=== PATIENT | female | born 1955 | race Caucasian/White ===

== ENCOUNTER 2018-09-19 12:53 | Inpatient (IN) | payer MEDICARE, OTHER ==
[2018-09-19 14:12] VITALS: BMI 19.8
--- NOTE | 2018-09-19 15:12 | HP ---
CIWA Score - Admission Criteria [facility]ASAS Guidelines: Admission for Medically Managed Detox: Requires at least one of the followin. CIWA greater than 12 2. Seizures within the past 24 hours 3. Delirium tremens within the past 24 hours 4. Hallucinations within the past 24 hours 5. Acute intervention needed for co occurring medical disorder 6. Acute intervention needed for co occurring psychiatric disorder 7. Severe withdrawal that cannot be handled at a lower level of care (continued vomiting, continued diarrhea, abnormal vital signs) requiring intravenous medication and/or fluids 8. Admission ROS [facility] - HPI Chief Complaint: i need help to come in for rehab from cocaine,heroin abused,mmtp 30 mgs/day, last medicated today Allergies/Adverse Reactions: Allergies Allergy/AdvReac Type Severity Reaction Status Date / Time No Known Allergies Allergy Verified 09/19/18 13:57 History of Present Illness: this 63 years old female with cocaine dependence,heroin abused,mmtp 30 mgs/day, last medicated today requested rehab history of hypertension heroin abused last rehab 07/21/15 to 07/25/15 nicotine dependence 5 cigarette/day,requested nicotine gum no significant period of sobriety weight loss Exam Limitations: No Limitations - Ebola screening Have you traveled outside of the country in the last 21 days: No Have you had contact with anyone from an Ebola affected area: No Do you have a fever: No - Review of Systems Constitutional: No Symptoms Reported EENT: reports: No Symptoms Reported Respiratory: reports: No Symptoms reported Cardiac: reports: No Symptoms Reported GI: reports: No Symptoms Reported : reports: No Symptoms Reported Musculoskeletal: reports: No Symptoms Reported Integumentary: reports: No Symptoms Reported Neuro: reports: No Symptoms reported Endocrine: reports: No Symptoms Reported Hematology: reports: No Symptoms Reported Psychiatric: reports: No Sypmtoms Reported, Judgement Intact, Mood/Affect Appropiate, Orientated x3, other (insomnia) Patient History - Patient Medical History Hx Anemia: No Hx Asthma: No Hx Chronic Obstructive Pulmonary Disease (COPD): No Hx Cancer: No Hx Cardiac Disorders: No Hx Congestive Heart Failure: No Hx Hypertension: Yes (non compliant) Hx Hypercholesterolemia: No Hx Pacemaker: No HX Cerebrovascular Accident: No Hx Seizures: No Hx Dementia: No Hx Diabetes: No Hx Gastrointestinal Disorders: No Hx Liver Disease: No Hx Genitourinary Disorders: No Hx Sexually Transmitted Disorders: No Hx Renal Disease (ESRD): No Hx Thyroid Disease: No Hx Human Immunodeficiency Virus (HIV): No (negative last 08/29) Hx Hepatitis C: No Hx Depression: Yes Hx Suicide Attempt: No (denies) Hx Bipolar Disorder: No Hx Schizophrenia: No Other Medical History: no suicidal,no homicidal,insomnia - Patient Surgical History Past Surgical History: No Hx Neurologic Surgery: No Hx Cataract Extraction: No Hx Cardiac Surgery: No Hx Lung Surgery: Yes (right upper lobectomy 2011 [facility] ) Hx Breast Surgery: No Hx Breast Biopsy: No Hx Abdominal Surgery: No Hx Appendectomy: No Hx Cholecystectomy: Yes (lap 2004 [facility]) Hx Genitourinary Surgery: No Hx Section: No Hx Orthopedic Surgery: No Anesthesia Reaction: No - PPD History Previous Implant?: Yes Documented Results: Negative w/o proof Implanted On Prior [facility] Admission?: Yes Date: 07/23/15 Results: 0 mm PPD to be Administered?: No - Reproductive History Patient : No - Smoking Cessation Smoking history: Current every day smoker Have you smoked in the past 12 months: Yes Aproximately how many cigarettes per day: 7 Hx Chewing Tobacco Use: No Initiated information on smoking cessation: Yes 'Breaking Loose' booklet given: 09/19/18 - Substance & Tx. History Hx Alcohol Use: No Hx Substance Use: Yes Substance Use Type: Cocaine, Heroin Hx Substance Use Treatment: Yes (rehab [facility] 07/21/15 to 07/25/15) - Substances abused Cocaine Substance route: Inhalation Frequency: Daily Amount used: 1 gram Age of first use: 46 Date of last use: 09/18/18 Heroin Substance route: Inhalation Frequency: Daily Amount used: 4 bags Age of first use: 60 Date of last use: 09/18/18 Family Disease History - Family Disease History Family Disease History: Heart Disease: Mother Admission Physical Exam [facility] - Vital Signs Vital Signs: Vital Signs - 24 hr 09/19/18 14:04 Temperature 98.5 F Pulse Rate 76 Respiratory 18 Rate Blood Pressure 113/84 - Physical General Appearance: Yes: Within Normal Limits HEENTM: Yes: Normal ENT Inspection, KANA, Pharynx Normal Respiratory: Yes: Lungs Clear, Normal Breath Sounds, No Respiratory Distress, Surgical Scar (right posterior chest wall) Neck: Yes: Within Normal Limits, Supple, Trachea in good position Breast: Yes: Breast Exam Deferred Cardiology: Yes: Within Normal Limits, Regular Rate, S1, S2, Murmur Abdominal: Yes: Within Normal Limits, Normal Bowel Sounds, Non Tender, Flat, Soft, Surgical Scar Genitourinary: Yes: Within Normal Limits Back: Yes: Within Normal Limits Musculoskeletal: Yes: Within Normal Limits Extremities: Yes: Within Normal Limits 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 NML intact, Alert, Motor Strength 5/5 Integumentary: Yes: Dry Lymphatic: Yes: Within Normal Limits - Diagnostic (1) Cocaine dependence, uncomplicated Current Visit: No Status: Chronic (2) Heroin abuse Current Visit: Yes Status: Acute (3) Methadone maintenance therapy patient Current Visit: Yes Status: Acute (4) Nicotine dependence Current Visit: No Status: Chronic Qualifiers: Nicotine product type: cigarettes Substance use status: uncomplicated Qualified Code(s): F17.210 - Nicotine dependence, cigarettes, uncomplicated (5) Insomnia secondary to depression with anxiety Current Visit: Yes Status: Acute (6) Weight loss Current Visit: Yes Status: Acute (7) Lung cancer Current Visit: Yes Status: Acute (8) History of lung surgery Current Visit: Yes Status: Acute (9) History of laparoscopic cholecystectomy Current Visit: Yes Status: Acute Cleared for Admission [facility] - Detox or Rehab Claeared for Rehab Admission: Yes Inpatient Rehab Admission - Rehab Decision to Admit Inpatient rehab admission?: Yes - Initial Determination Are CD services needed?: Yes Free of communicable disease: Yes Not in need of hospitalization: Yes - Rehab Admission Criteria Previous failed treatment: Yes Poor recovery environment: Yes Comorbidities: Yes Lacks judgement: No Patient is meeting Inpatient Rehab admission criteria:: Yes
[2018-09-19] MEDS ORDERED: LOPERAMIDE HCL 2 MG CAPSULE PO PRN (15:26)
[2018-09-19] MEDS ORDERED: MAG HYDROX/AL HYDROX/SIMETH 30 ML UNIT-DOSE CUP PO PRN (15:26)
[2018-09-19] MEDS ORDERED: P-EPHED 60MG/TRIPROLIDI 2.5MG TABLET PO PRN (15:26)
[2018-09-19] MEDS ORDERED: MAGNESIUM CITRATE 300 ML BOTTLE PO PRN (15:26)
[2018-09-19] MEDS ORDERED: MAGNESIUM HYDROX 2400MG/30ML ORAL SUSPENSION 30 ML CUP PO PRN (15:26)
[2018-09-19] MEDS ORDERED: ACETAMINOPHEN 325 MG TABLET (FP) PO PRN (15:26)
[2018-09-19] MEDS ORDERED: MENTHOL/PHENOL 1 EACH UD MM PRN (15:26)
[2018-09-19] MEDS ORDERED: IBUPROFEN 400 MG TABLET (FP) PO PRN (15:26)
[2018-09-19] MEDS ORDERED: guaiFENesin 200 MG/10 ML 10 ML UNIT-DOSE CUPS PO PRN (15:26)
[2018-09-19] MEDS: THIAMINE HCL 100 MG TABLET (FP) PO SCH (21:56)
[2018-09-19] MEDS: MELATONIN 5 MG TABLETS PO PRN (21:57)
[2018-09-19] MEDS: TRIAMCINOLONE ACET 0.1% CREAM 15 GM TUBE TP SCH (22:09)
[2018-09-20] MEDS: METHADONE HCL 10 MG TABLET PO SCH (07:19)
[2018-09-20] MEDS: hydrOXYzine PAMOATE 25 MG CAPSULE (FP) PO PRN ×3 (07:50→21:16)
[2018-09-20] MEDS: TRIAMCINOLONE ACET 0.1% CREAM 15 GM TUBE TP SCH ×2 (09:15→21:16)
[2018-09-20] MEDS: PRENATAL VITAMINS W/ FOLIC ACID TABLET (FP) PO SCH (09:16)
[2018-09-20] MEDS: LOSARTAN POTASSIUM 50 MG TABLET (FP) PO SCH (09:18)
[2018-09-20 12:54] LABS: HEMOGLOBIN 12.8 GM/dL (10.7-15.3); MCH 30.9 pg (25.7-33.7); MCHC 33.6 g/dl (32.0-36.0); MEAN CELL VOLUME 91.8 fl (80-96); MEAN PLT VOLUME 8.7 fl (7.5-11.1); PLATELET COUNT 242 K/MM3 (134-434); RBC 4.15 M/mm3 (3.60-5.2); RDW 13.6 % (11.6-15.6)
[2018-09-20 12:56] LABS: ALBUMIN 3.3 g/dl (3.4-5.0); BILIRUBIN,TOTAL 0.6 mg/dL (0.2-1); BLOOD UREA NITROGEN 20.2 mg/dL (7-18); CALCIUM 8.8 mg/dL (8.5-10.1); CREATININE 0.7 mg/dL (0.55-1.3); POTASSIUM 4.2 mmol/L (3.5-5.1); TOT PROT 7.3 g/dl (6.4-8.2)
[2018-09-20 17:53] LABS: EPI CELLS 3.1 /HPF (0-5/HPF); HYALINE CASTS 3 /lpf (0-8); PH,URINE 6.5 (5.0-8.0); URINE APPEARANCE CLEAR; URINE BACTERIA 6.2 /hpf (NEGATIVE); URINE BILIRUBIN NEGATIVE (NEGATIVE); URINE COLOR YELLOW; URINE GLUCOSE (UA) NEGATIVE (NEGATIVE); URINE KETONE NEGATIVE (NEGATIVE); URINE LEUK ESTERASE TRACE (NEGATIVE); URINE NITRITE NEGATIVE (NEGATIVE); URINE PROTEIN NEGATIVE (NEGATIVE); URINE RBC 5 /hpf (0-4); URINE UROBILINOGEN 0.2 mg/dL (0.2-1.0); URINE WBC 6 /hpf (0-5)
[2018-09-20] MEDS: NICOTINE POLACRILEX 2 MG GUM BUC PRN (18:39)
[2018-09-20] MEDS: THIAMINE HCL 100 MG TABLET (FP) PO SCH (21:16)
[2018-09-20] MEDS: MELATONIN 5 MG TABLETS PO PRN (21:16)
[2018-09-21] MEDS: METHADONE HCL 10 MG TABLET PO SCH (06:25)
[2018-09-21] MEDS: hydrOXYzine PAMOATE 25 MG CAPSULE (FP) PO PRN ×4 (06:26→21:18)
[2018-09-21] MEDS ORDERED: PT OWN MED DRAWER 7, Y5N ONE (08:31)
[2018-09-21] MEDS: LOSARTAN POTASSIUM 50 MG TABLET (FP) PO SCH (09:19)
[2018-09-21] MEDS: TRIAMCINOLONE ACET 0.1% CREAM 15 GM TUBE TP SCH ×2 (09:19→21:35)
[2018-09-21] MEDS: PRENATAL VITAMINS W/ FOLIC ACID TABLET (FP) PO SCH (09:19)
[2018-09-21] MEDS ORDERED: cloNIDine HCL 0.1 MG TABLET PO ONE (10:07)
--- NOTE | 2018-09-21 10:07 | PN ---
S Progress Note Note: patient is anxious,aching pain,history of cocaine,heroin abused,mmtp Vital Signs Temperature 98.2 F 09/21/18 07:17 Pulse Rate 83 09/21/18 09:13 Respiratory Rate 16 09/21/18 09:13 Blood Pressure 147/80 09/21/18 09:13 O2 Sat by Pulse Oximetry (%) will give clonidine 0.1 mg po now then bid for 72 hrs
[2018-09-21] MEDS: NICOTINE POLACRILEX 2 MG GUM BUC PRN (13:01)
[2018-09-21] MEDS: cloNIDine HCL 0.1 MG TABLET PO SCH (21:18)
[2018-09-21] MEDS: THIAMINE HCL 100 MG TABLET (FP) PO SCH (21:18)
[2018-09-21] MEDS: MELATONIN 5 MG TABLETS PO PRN (21:18)
[2018-09-22] MEDS: METHADONE HCL 10 MG TABLET PO SCH (06:06)
[2018-09-22] MEDS: hydrOXYzine PAMOATE 25 MG CAPSULE (FP) PO PRN (06:07)
[2018-09-22] MEDS: PRENATAL VITAMINS W/ FOLIC ACID TABLET (FP) PO SCH (10:00)
[2018-09-22] MEDS: cloNIDine HCL 0.1 MG TABLET PO SCH ×2 (10:02→21:36)
[2018-09-22] MEDS: LOSARTAN POTASSIUM 50 MG TABLET (FP) PO SCH (10:02)
[2018-09-22] MEDS: TRIAMCINOLONE ACET 0.1% CREAM 15 GM TUBE TP SCH ×2 (10:54→21:37)
--- NOTE | 2018-09-22 11:43 | CONSULT ---
[facility] Psychiatric Consult - Data Date of interview: 09/22/18 Admission source: [facility] Identifying data: Ms Naranjo is a 63 years old single female, mother of 3 children, unemployed receiving SSI, domiciled seeking rehab treatment for opiod and cocaine Substance Abuse History: Reports history of heroin and cocaine use. Refer to addiction counselor's summary for further information Medical History: Significant for hypertension, empysema, history surgeries( right upper lobectomy in 2011 and cholecystectomyin 2004). Smokes 7 cigarettes daily Psychiatric History: Reports that she saw a psychiatrist years ago at [facility] for depression and anxiety. She claims that she was prescribed medication which she did not take for long. Denies previous psychiatric hospitalization or suicidal attempt. However, reports feeling sad, anxious and sleeping poorly Physical/Sexual Abuse/Trauma History: Denies history of emotional, physical or sexual abuse as well as DV relationship Additional Comment: Denies criminal history Mental Status Exam - Mental Status Exam Alert and Oriented to: Time, Place, Person Cognitive Function: Fair Patient Appearance: Well Groomed Mood: Depressed, Anxious Affect: Appropriate Patient Behavior: Cooperative Speech Pattern: Clear Voice Loudness: Normal Thought Process: Intact, Goal Oriented Hallucinations: Denies Suicidal Ideation: Denies Homicidal Ideation: Denies Insight/Judgement: Fair Sleep: Poorly Muscle strength/Tone: Normal Gait/Station: Normal Psychiatric Findings - Problem List ([place] 1, 2,3) (1) Substance induced mood disorder Current Visit: Yes Status: Acute (2) Substance-induced anxiety disorder Current Visit: Yes Status: Acute (3) Substance-induced sleep disorder Current Visit: Yes Status: Acute (4) Cocaine dependence Current Visit: Yes Status: Acute (5) Opioid dependence on agonist therapy Current Visit: Yes Status: Chronic (6) Nicotine dependence Current Visit: No Status: Chronic Qualifiers: Nicotine product type: cigarettes Substance use status: uncomplicated Qualified Code(s): F17.210 - Nicotine dependence, cigarettes, uncomplicated (7) Lung cancer Current Visit: Yes Status: Resolved (8) Hypertension Current Visit: No Status: Chronic Qualifiers: Hypertension type: essential hypertension Qualified Code(s): I10 - Essential (primary) hypertension Comment: re-took BP 153/82 pulse 110 - Initial Treatment Plan Initial Treatment Plan: 1) Start Hydroxyzine Pamoate 50 mg po Q 4hrs prn for anxiety. 2) continue inpatient rehabilitation
[2018-09-22] MEDS: hydrOXYzine PAMOATE 50 MG CAPSULE (FP) PO PRN (14:12)
--- NOTE | 2018-09-22 14:26 | PN ---
[facility] Progress Note Note: Pt c/o rash to neck ear and arms stating she had it long time from outside. Hx of cocaine dependence. Vital Signs - 24 hr 09/21/18 09/22/18 09/22/18 20:53 00:30 03:30 Temperature Pulse Rate 79 Respiratory 16 18 Rate Blood Pressure 133/80 09/22/18 09/22/18 06:01 10:00 Temperature 97.8 F Pulse Rate 54 L 64 Respiratory 16 Rate Blood Pressure 158/74 130/64 Laboratory Tests 09/20/18 09/20/18 09/20/18 09:00 10:00 10:00 WBC 6.0 RBC 4.15 Hgb 12.8 Hct 38.0 MCV 91.8 MCH 30.9 MCHC 33.6 RDW 13.6 Plt Count 242 MPV 8.7 Sodium 141 Potassium 4.2 Chloride 106 Carbon Dioxide 31 Anion Gap 4 L BUN 20.2 H Creatinine 0.7 Est GFR (CKD-EPI)AfAm 105.38 Est GFR (CKD-EPI)NonAf 90.92 Random Glucose 100 Calcium 8.8 Total Bilirubin 0.6 AST 30 ALT 34 Alkaline Phosphatase 134 H Total Protein 7.3 Albumin 3.3 L Urine Color Urine Appearance Urine pH Ur Specific [place] Urine Protein Urine Glucose (UA) Urine Ketones Urine Blood Urine Nitrite Urine Bilirubin Urine Urobilinogen Ur Leukocyte Esterase Urine WBC (Auto) Urine RBC (Auto) Urine Casts (Auto) U Epithel Cells (Auto) Urine Bacteria (Auto) RPR Titer HIV 1&2 Ag/Ab, 4th Gen Non reactive HIV 1&2 Antibody Screen HIV P24 Antigen 09/20/18 09/20/18 09/20/18 10:00 10:00 Unknown WBC RBC Hgb Hct MCV MCH MCHC RDW Plt Count MPV Sodium Potassium Chloride Carbon Dioxide Anion Gap BUN Creatinine Est GFR (CKD-EPI)AfAm Est GFR (CKD-EPI)NonAf Random Glucose Calcium Total Bilirubin AST ALT Alkaline Phosphatase Total Protein Albumin Urine Color Yellow Urine Appearance Clear Urine pH 6.5 Ur Specific [place] 1.021 Urine Protein Negative Urine Glucose (UA) Negative Urine Ketones Negative Urine Blood Negative Urine Nitrite Negative Urine Bilirubin Negative Urine Urobilinogen 0.2 Ur Leukocyte Esterase Trace Urine WBC (Auto) 6 Urine RBC (Auto) 5 Urine Casts (Auto) 3 U Epithel Cells (Auto) 3.1 Urine Bacteria (Auto) 6.2 RPR Titer Nonreactive HIV 1&2 Ag/Ab, 4th Gen HIV 1&2 Antibody Screen Cancelled HIV P24 Antigen Cancelled p/e alert o x 3 skin:multiple areas of small open skin and papular eruptions on neck, right ear and arms in different healing stages. No drainage or pus noted. A/P:r/o cocaine rash Plan:bacitracin ointment apply to affected areas as directed. Aveeno soap daily
[2018-09-22] MEDS: NICOTINE POLACRILEX 2 MG GUM BUC PRN (16:26)
[2018-09-22] MEDS: THIAMINE HCL 100 MG TABLET (FP) PO SCH (21:36)
[2018-09-22] MEDS: BACITRACIN 15 GM TUBE TOPICAL OINTMENT TP SCH (21:37)
[2018-09-22] MEDS: MELATONIN 5 MG TABLETS PO PRN (21:38)
[2018-09-23] MEDS: METHADONE HCL 10 MG TABLET PO SCH (06:30)
[2018-09-23] MEDS ORDERED: PT OWN MED DRAWER 7, Y5N ONE (08:39)
[2018-09-23] MEDS: BACITRACIN 15 GM TUBE TOPICAL OINTMENT TP SCH (09:42)
[2018-09-23] MEDS: TRIAMCINOLONE ACET 0.1% CREAM 15 GM TUBE TP SCH ×2 (09:42→21:35)
[2018-09-23] MEDS: NICOTINE POLACRILEX 2 MG GUM BUC PRN (09:43)
[2018-09-23] MEDS: LOSARTAN POTASSIUM 50 MG TABLET (FP) PO SCH (09:43)
[2018-09-23] MEDS: PRENATAL VITAMINS W/ FOLIC ACID TABLET (FP) PO SCH (09:43)
[2018-09-23] MEDS: cloNIDine HCL 0.1 MG TABLET PO SCH ×2 (09:43→21:35)
[2018-09-23] MEDS: hydrOXYzine PAMOATE 50 MG CAPSULE (FP) PO PRN ×2 (16:39→21:34)
[2018-09-23] MEDS: THIAMINE HCL 100 MG TABLET (FP) PO SCH (21:34)
[2018-09-23] MEDS: MELATONIN 5 MG TABLETS PO PRN (21:36)
[2018-09-24] MEDS: METHADONE HCL 10 MG TABLET PO SCH (06:27)
[2018-09-24] MEDS: NICOTINE POLACRILEX 2 MG GUM BUC PRN ×2 (09:52→21:41)
[2018-09-24] MEDS: PRENATAL VITAMINS W/ FOLIC ACID TABLET (FP) PO SCH (09:53)
[2018-09-24] MEDS: cloNIDine HCL 0.1 MG TABLET PO SCH ×2 (09:53→21:39)
[2018-09-24] MEDS: LOSARTAN POTASSIUM 50 MG TABLET (FP) PO SCH (09:53)
[2018-09-24] MEDS: BACITRACIN 15 GM TUBE TOPICAL OINTMENT TP SCH (09:54)
[2018-09-24] MEDS: TRIAMCINOLONE ACET 0.1% CREAM 15 GM TUBE TP SCH ×2 (09:54→21:38)
[2018-09-24] MEDS: hydrOXYzine PAMOATE 50 MG CAPSULE (FP) PO PRN ×2 (12:33→21:39)
[2018-09-24] MEDS: THIAMINE HCL 100 MG TABLET (FP) PO SCH (21:40)
[2018-09-25] MEDS: METHADONE HCL 10 MG TABLET PO SCH (06:16)
[2018-09-25] MEDS: TRIAMCINOLONE ACET 0.1% CREAM 15 GM TUBE TP SCH ×2 (09:35→21:23)
[2018-09-25] MEDS: PRENATAL VITAMINS W/ FOLIC ACID TABLET (FP) PO SCH (09:35)
[2018-09-25] MEDS: BACITRACIN 15 GM TUBE TOPICAL OINTMENT TP SCH (09:35)
[2018-09-25] MEDS: LOSARTAN POTASSIUM 50 MG TABLET (FP) PO SCH (09:36)
[2018-09-25] MEDS: NICOTINE POLACRILEX 2 MG GUM BUC PRN (09:36)
[2018-09-25] MEDS: MELATONIN 5 MG TABLETS PO PRN (21:22)
[2018-09-25] MEDS: THIAMINE HCL 100 MG TABLET (FP) PO SCH (21:22)
[2018-09-25] MEDS: hydrOXYzine PAMOATE 50 MG CAPSULE (FP) PO PRN (21:22)
[2018-09-26] MEDS: METHADONE HCL 10 MG TABLET PO SCH (06:08)
[2018-09-26] MEDS: BACITRACIN 15 GM TUBE TOPICAL OINTMENT TP SCH (09:49)
[2018-09-26] MEDS: LOSARTAN POTASSIUM 50 MG TABLET (FP) PO SCH (09:49)
[2018-09-26] MEDS: TRIAMCINOLONE ACET 0.1% CREAM 15 GM TUBE TP SCH ×2 (09:49→21:07)
[2018-09-26] MEDS: hydrOXYzine PAMOATE 50 MG CAPSULE (FP) PO PRN ×2 (09:49→21:07)
[2018-09-26] MEDS: PRENATAL VITAMINS W/ FOLIC ACID TABLET (FP) PO SCH (09:49)
[2018-09-26] MEDS ORDERED: PT OWN MED DRAWER 7, Y5N ONE (20:52)
[2018-09-26] MEDS: THIAMINE HCL 100 MG TABLET (FP) PO SCH (21:07)
[2018-09-26] MEDS: MELATONIN 5 MG TABLETS PO PRN (21:07)
[2018-09-27] MEDS: METHADONE HCL 10 MG TABLET PO SCH (06:05)
[2018-09-27] MEDS: LOSARTAN POTASSIUM 50 MG TABLET (FP) PO SCH ×2 (06:50→10:01)
[2018-09-27] MEDS ORDERED: cloNIDine HCL 0.1 MG TABLET PO ONE (07:49)
--- NOTE | 2018-09-27 07:50 | PN ---
[facility] Progress Note Note: Patient's blood pressure3 is B/P 200/76. She complained of headache rated at 9/ 10 Vital Signs Temperature 98.4 F 09/27/18 07:23 Pulse Rate 59 L 09/27/18 07:23 Respiratory Rate 18 09/27/18 07:23 Blood Pressure 200/76 H 09/27/18 07:23 O2 Sat by Pulse Oximetry (%) Action: EKG stat Clonidine 0.1mg tablet oral ordered
--- NOTE | 2018-09-27 08:30 | PN ---
[facility] Progress Note Note: ekg nsr rate 63/mi,no acute change close monitoring of vital signs
[2018-09-27] MEDS: PRENATAL VITAMINS W/ FOLIC ACID TABLET (FP) PO SCH (10:01)
[2018-09-27] MEDS: TRIAMCINOLONE ACET 0.1% CREAM 15 GM TUBE TP SCH ×2 (10:01→21:26)
[2018-09-27] MEDS: BACITRACIN 15 GM TUBE TOPICAL OINTMENT TP SCH (10:02)
[2018-09-27] MEDS: THIAMINE HCL 100 MG TABLET (FP) PO SCH (21:25)
[2018-09-27] MEDS: MELATONIN 5 MG TABLETS PO PRN (21:25)
[2018-09-27] MEDS: hydrOXYzine PAMOATE 50 MG CAPSULE (FP) PO PRN (21:25)
[2018-09-28] MEDS: METHADONE HCL 10 MG TABLET PO SCH (06:35)
[2018-09-28] MEDS: PRENATAL VITAMINS W/ FOLIC ACID TABLET (FP) PO SCH (09:52)
[2018-09-28] MEDS: LOSARTAN POTASSIUM 50 MG TABLET (FP) PO SCH (09:52)
[2018-09-28] MEDS: BACITRACIN 15 GM TUBE TOPICAL OINTMENT TP SCH (09:52)
[2018-09-28] MEDS: TRIAMCINOLONE ACET 0.1% CREAM 15 GM TUBE TP SCH ×2 (09:53→21:06)
--- NOTE | 2018-09-28 11:37 | EKG ---
Test Reason : Blood Pressure : / mmHG Vent. Rate : 063 BPM Atrial Rate : 063 BPM P-R Int : 126 ms QRS Dur : 076 ms QT Int : 436 ms P-R-T Axes : 051 -09 028 degrees QTc Int : 446 ms NORMAL SINUS RHYTHM NONSPECIFIC ST ABNORMALITY ABNORMAL ECG NO PREVIOUS ECGS AVAILABLE Confirmed by SHARRON ENAMORADO, BALBINA ([id number]) on 09/28/2018 11:37:07 AM Referred By: Confirmed By:BALBINA MCDERMOTT MD
[2018-09-28] MEDS: hydrOXYzine PAMOATE 50 MG CAPSULE (FP) PO PRN (21:05)
[2018-09-28] MEDS: THIAMINE HCL 100 MG TABLET (FP) PO SCH (21:05)
[2018-09-28] MEDS: MELATONIN 5 MG TABLETS PO PRN (21:05)
[2018-09-29] MEDS: METHADONE HCL 10 MG TABLET PO SCH (06:32)
[2018-09-29] MEDS: hydrOXYzine PAMOATE 50 MG CAPSULE (FP) PO PRN ×2 (06:32→21:34)
[2018-09-29] MEDS: LOSARTAN POTASSIUM 50 MG TABLET (FP) PO SCH (09:42)
[2018-09-29] MEDS: PRENATAL VITAMINS W/ FOLIC ACID TABLET (FP) PO SCH (09:42)
[2018-09-29] MEDS: BACITRACIN 15 GM TUBE TOPICAL OINTMENT TP SCH (09:43)
[2018-09-29] MEDS: TRIAMCINOLONE ACET 0.1% CREAM 15 GM TUBE TP SCH ×2 (09:43→21:36)
--- NOTE | 2018-09-29 11:38 | PN ---
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 States pt is on: Lorsatan 50 mg po daily Aspirin 81 mg po daily Lipitor 20 mg po daily Celexa 10 mg po daily Primary Care provider: Aaron Mullins
[2018-09-29] MEDS: ASPIRIN 81 MG CHEWABLE TABLETS PO SCH (14:27)
[2018-09-29] MEDS: cloNIDine HCL 0.1 MG TABLET PO PRN (21:34)
[2018-09-29] MEDS: MELATONIN 5 MG TABLETS PO PRN (21:34)
[2018-09-29] MEDS: THIAMINE HCL 100 MG TABLET (FP) PO SCH (21:34)
[2018-09-29] MEDS: ATORVASTATIN CA 20 MG TABLET (FP) PO SCH (21:36)
[2018-09-30] MEDS: METHADONE HCL 10 MG TABLET PO SCH (06:16)
[2018-09-30] MEDS: cloNIDine HCL 0.1 MG TABLET PO PRN (06:17)
[2018-09-30] MEDS: TRIAMCINOLONE ACET 0.1% CREAM 15 GM TUBE TP SCH ×2 (10:00→22:01)
[2018-09-30] MEDS: PRENATAL VITAMINS W/ FOLIC ACID TABLET (FP) PO SCH (10:00)
[2018-09-30] MEDS: LOSARTAN POTASSIUM 50 MG TABLET (FP) PO SCH (10:00)
[2018-09-30] MEDS: ASPIRIN 81 MG CHEWABLE TABLETS PO SCH (10:00)
[2018-09-30] MEDS: BACITRACIN 15 GM TUBE TOPICAL OINTMENT TP SCH (10:01)
[2018-09-30] MEDS: ATORVASTATIN CA 20 MG TABLET (FP) PO SCH (21:17)
[2018-09-30] MEDS: THIAMINE HCL 100 MG TABLET (FP) PO SCH (21:17)
[2018-09-30] MEDS: MELATONIN 5 MG TABLETS PO PRN (21:17)
[2018-09-30] MEDS: hydrOXYzine PAMOATE 50 MG CAPSULE (FP) PO PRN (21:18)
[2018-10-01] MEDS: METHADONE HCL 10 MG TABLET PO SCH (06:34)
[2018-10-01] MEDS: cloNIDine HCL 0.1 MG TABLET PO PRN (06:35)
[2018-10-01 07:27] VITALS: TEMP 97.9
[2018-10-01] MEDS: ASPIRIN 81 MG CHEWABLE TABLETS PO SCH (09:15)
[2018-10-01] MEDS: PRENATAL VITAMINS W/ FOLIC ACID TABLET (FP) PO SCH (09:15)
[2018-10-01] MEDS: LOSARTAN POTASSIUM 50 MG TABLET (FP) PO SCH (09:15)
[2018-10-01] MEDS: TRIAMCINOLONE ACET 0.1% CREAM 15 GM TUBE TP SCH (09:16)
[2018-10-01] MEDS: BACITRACIN 15 GM TUBE TOPICAL OINTMENT TP SCH (09:16)
[2018-10-01 09:23] VITALS: BP 156/82; PULSE 64
--- NOTE | 2018-10-01 10:37 | DS ---
[facility] Rehab Discharge Summary - [facility] Rehab Discharge Summary Admission Date: 09/19/18 Discharge Date: 10/02/18 - History Present History: Cocaine dependence, MMTP, Opioid dependence Additional Comments: Pt completed rehab and discharged as scheduled. Pertinent Past History: HTN Lung Cancer-resolved - Discharge Physical Exam Vital Signs: Vital Signs Temperature 97.9 F 10/01/18 07:26 Pulse Rate 64 10/01/18 09:15 Respiratory Rate 18 10/01/18 07:26 Blood Pressure 156/82 10/01/18 09:15 O2 Sat by Pulse Oximetry (%) Pertinent Admission Physical Exam Findings: Laboratory Tests 09/20/18 09/20/18 09/20/18 09:00 10:00 10:00 WBC 6.0 RBC 4.15 Hgb 12.8 Hct 38.0 MCV 91.8 MCH 30.9 MCHC 33.6 RDW 13.6 Plt Count 242 MPV 8.7 Sodium 141 Potassium 4.2 Chloride 106 Carbon Dioxide 31 Anion Gap 4 L BUN 20.2 H Creatinine 0.7 Est GFR (CKD-EPI)AfAm 105.38 Est GFR (CKD-EPI)NonAf 90.92 Random Glucose 100 Calcium 8.8 Total Bilirubin 0.6 AST 30 ALT 34 Alkaline Phosphatase 134 H Total Protein 7.3 Albumin 3.3 L Urine Color Urine Appearance Urine pH Ur Specific [place] Urine Protein Urine Glucose (UA) Urine Ketones Urine Blood Urine Nitrite Urine Bilirubin Urine Urobilinogen Ur Leukocyte Esterase Urine WBC (Auto) Urine RBC (Auto) Urine Casts (Auto) U Epithel Cells (Auto) Urine Bacteria (Auto) RPR Titer HIV 1&2 Ag/Ab, 4th Gen Non reactive HIV 1&2 Antibody Screen HIV P24 Antigen TB (QFT) Incubation TB Test (QFT) Nil TB Test (QFT) Mitogen TB Test (QFT) Antigen TB Test (QFT) TB Positive Criteria 09/20/18 09/20/18 09/20/18 10:00 10:00 Unknown WBC RBC Hgb Hct MCV MCH MCHC RDW Plt Count MPV Sodium Potassium Chloride Carbon Dioxide Anion Gap BUN Creatinine Est GFR (CKD-EPI)AfAm Est GFR (CKD-EPI)NonAf Random Glucose Calcium Total Bilirubin AST ALT Alkaline Phosphatase Total Protein Albumin Urine Color Yellow Urine Appearance Clear Urine pH 6.5 Ur Specific [place] 1.021 Urine Protein Negative Urine Glucose (UA) Negative Urine Ketones Negative Urine Blood Negative Urine Nitrite Negative Urine Bilirubin Negative Urine Urobilinogen 0.2 Ur Leukocyte Esterase Trace Urine WBC (Auto) 6 Urine RBC (Auto) 5 Urine Casts (Auto) 3 U Epithel Cells (Auto) 3.1 Urine Bacteria (Auto) 6.2 RPR Titer Nonreactive HIV 1&2 Ag/Ab, 4th Gen HIV 1&2 Antibody Screen Cancelled HIV P24 Antigen Cancelled TB (QFT) Incubation TB Test (QFT) Nil TB Test (QFT) Mitogen TB Test (QFT) Antigen TB Test (QFT) TB Positive Criteria 09/21/18 09:00 WBC RBC Hgb Hct MCV MCH MCHC RDW Plt Count MPV Sodium Potassium Chloride Carbon Dioxide Anion Gap BUN Creatinine Est GFR (CKD-EPI)AfAm Est GFR (CKD-EPI)NonAf Random Glucose Calcium Total Bilirubin AST ALT Alkaline Phosphatase Total Protein Albumin Urine Color Urine Appearance Urine pH Ur Specific [place] Urine Protein Urine Glucose (UA) Urine Ketones Urine Blood Urine Nitrite Urine Bilirubin Urine Urobilinogen Ur Leukocyte Esterase Urine WBC (Auto) Urine RBC (Auto) Urine Casts (Auto) U Epithel Cells (Auto) Urine Bacteria (Auto) RPR Titer HIV 1&2 Ag/Ab, 4th Gen HIV 1&2 Antibody Screen HIV P24 Antigen TB (QFT) Incubation TB Test (QFT) Nil 0.06 TB Test (QFT) Mitogen >10.00 TB Test (QFT) Antigen 0.07 TB Test (QFT) Negative TB Positive Criteria General:Alert o x 3. NAD Cardiac:s1 s2,rrr Lungs:cta,jocelin. no sob Abdomen:Soft,+bs,nt,nd Extremeties/Skin:No edema,cyanosis;Ambulates with steady gait, full ROM. - Treatment Discharge Condition: Discharge condition good Hospital Course: Responded well and rehabilitated safely. - Medication Discharge Medications: Ambulatory Orders Aspirin 1 tab PO DAILY #14 tab.chew 09/30/18 Atorvastatin Ca [Lipitor] 1 tab PO HS #14 tablet 09/30/18 Losartan Potassium [Cozaar -] 50 mg PO DAILY #14 tablet 09/30/18 - Medication-Assisted Treatment (MAT) Medication-Assisted Treatment (MAT): No - Discharge Instructions Diet, activity, other medical instructions: Diet:Low salt Activity: As tolerated Other medical instructions:Follow up with primary care provider Aaron Mullins - Diagnosis (1) Nicotine dependence Status: Chronic Qualifiers: Nicotine product type: cigarettes Substance use status: uncomplicated Qualified Code(s): F17.210 - Nicotine dependence, cigarettes, uncomplicated (2) Hypertension Status: Chronic Qualifiers: Hypertension type: essential hypertension Qualified Code(s): I10 - Essential (primary) hypertension (3) Heroin abuse Status: Chronic (4) Methadone maintenance therapy patient Status: Chronic (5) Weight loss Status: Acute (6) Cocaine dependence Status: Chronic Qualifiers: Substance use status: uncomplicated Qualified Code(s): F14.20 - Cocaine dependence, uncomplicated - AMA Did Patient Leave Against Medical Advice: No Additional Comments: follow up with [facility] for CD aftercare.
== END 2018-10-01 09:22 | disposition home or self-care (01) | DRG 895 ==
LOC: YASAS 12:53 → Y3E 15:26
PROVIDERS: ADMIT Neuromusculoskeletal Medicine & OMM; ATTEND Neuromusculoskeletal Medicine & OMM
PROC: HZ42ZZZ Group Counseling for Substance Abuse Treatment, Cognitive-Behavioral (ICD-10-PCS; principal; 2018-09-19)
DX: F14.188 Cocaine abuse with other cocaine-induced disorder (principal); F11.20 Opioid dependence, uncomplicated; F19.280 Other psychoactive substance dependence with psychoactive substance-induced anxiety disorder; F19.282 Other psychoactive substance dependence with psychoactive substance-induced sleep disorder; F17.210 Nicotine dependence, cigarettes, uncomplicated; F51.05 Insomnia due to other mental disorder; F19.24 Other psychoactive substance dependence with psychoactive substance-induced mood disorder; I10 Essential (primary) hypertension; R63.4 Abnormal weight loss; R21 Rash and other nonspecific skin eruption; J43.9 Emphysema, unspecified; Z85.118 Personal history of other malignant neoplasm of bronchus and lung; R01.1 Cardiac murmur, unspecified; Z90.2 Acquired absence of lung [part of]; Z91.14 Patient's other noncompliance with medication regimen
CPT/HCPCS: 36415; 80053; 81003; 85027; 86480; 86593; 87389; 93005; 93010; J0735

== ENCOUNTER 2018-11-25 09:27 | Inpatient (IN) | payer MEDICARE, OTHER ==
[2018-11-25 10:03] VITALS: BMI 20.7
--- NOTE | 2018-11-25 10:58 | HP ---
CIWA Score Nausea/Vomitin Muscle Tremors: 2 Anxiety: 2 Agitation: 0-Normal Activity Paroxysmal Sweats: 2 Orientation: 0-Oriented Tacttile Disturbances: 2-Mild Itch/Numbness/Burn Auditory Disturbances: 2-Mild Harshness/Frighten Visual Disturbances: 2-Mild Sensitivity Headache: 1-Very Mild CIWA-Ar Total Score: 15 - Admission Criteria OASAS Guidelines: Admission for Medically Managed Detox: Requires at least one of the followin. CIWA greater than 12 2. Seizures within the past 24 hours 3. Delirium tremens within the past 24 hours 4. Hallucinations within the past 24 hours 5. Acute intervention needed for co occurring medical disorder 6. Acute intervention needed for co occurring psychiatric disorder 7. Severe withdrawal that cannot be handled at a lower level of care (continued vomiting, continued diarrhea, abnormal vital signs) requiring intravenous medication and/or fluids 8. Admitting History and Physical - Smoking History Smoking history: Current every day smoker Have you smoked in the past 12 months: Yes Aproximately how many cigarettes per day: 7 - Alcohol/Substance Use Hx Alcohol Use: No Admission ROS [facility] Allergies/Adverse Reactions: Allergies Allergy/AdvReac Type Severity Reaction Status Date / Time No Known Allergies Allergy Verified 11/25/18 09:46 History of Present Illness: ch Terms: ramy gill, 1955 Search Date: 11/25/2018 10:52:29 AM The Drug Utilization Report below displays all of the controlled substance prescriptions, if any, that your patient has filled in the last twelve months. The information displayed on this report is compiled from pharmacy submissions to the Department, and accurately reflects the information as submitted by the pharmacies. This report was requested by: Lizeth Danielson | Reference #: [id number] There are no results for the search terms that you entered. pt here requesting rehab from opiates and cocaine use , currently [facility] 40 mg , latest today , states was encouraged by program to come for in tx. cocaine : 40 $/day x 4 years heroin : 2 bags via inhalation x 2.5 years " I use the heroin to go down from the cocaine " oxycodone - denies fentanyl - denies etoh - < 1 pint , latest use yesterday , reports irritability if not drinking . Reports etoh use 3 x/ week , denies seizures, tremors or blackouts . tobacco : 6 cigs/day denies other illicits PMHX : htn , lung CA s/p partial resection Right upper lobectomy 2011 sp [place] 2004 PSHX : abdominal - unclear 3 adult children , lives w/ brother , from w/ [facility] Exam Limitations: No Limitations - Ebola screening Have you traveled outside of the country in the last 21 days: No Have you had contact with anyone from an Ebola affected area: No - Review of Systems Constitutional: Loss of Appetite, Unintentional Wgt. Loss EENT: reports: Other (myopia) Respiratory: reports: No Symptoms reported Cardiac: reports: No Symptoms Reported GI: reports: Constipated, Nausea, Poor Appetite : reports: No Symptoms Reported Musculoskeletal: reports: Muscle Pain Integumentary: reports: Rash (x 1 month jocelin hands , reports saw derm , sent to liver specialist , did not go yet rpeorts itching of the hands and scratching), Other Neuro: reports: Headache Endocrine: reports: See HPI Psychiatric: reports: Orientated x3, Anxious, Depressed Patient History - Patient Medical History Hx Anemia: No Hx Asthma: No Hx Chronic Obstructive Pulmonary Disease (COPD): No Hx Cancer: No Hx Cardiac Disorders: No Hx Congestive Heart Failure: No Hx Hypertension: Yes (non compliant) Hx Hypercholesterolemia: No Hx Pacemaker: No HX Cerebrovascular Accident: No Hx Seizures: No Hx Dementia: No Hx Diabetes: No Hx Gastrointestinal Disorders: No Hx Liver Disease: No Hx Genitourinary Disorders: No Hx Sexually Transmitted Disorders: No Hx Renal Disease (ESRD): No Hx Thyroid Disease: No Hx Human Immunodeficiency Virus (HIV): No (negative last 08/29) Hx Hepatitis C: No Hx Depression: Yes Hx Suicide Attempt: No (denies) Hx Bipolar Disorder: No Hx Schizophrenia: No - Patient Surgical History Past Surgical History: No Hx Neurologic Surgery: No Hx Cataract Extraction: No Hx Cardiac Surgery: No Hx Lung Surgery: Yes (right upper lobectomy 2011 ) Hx Breast Surgery: No Hx Breast Biopsy: No Hx Abdominal Surgery: No Hx Appendectomy: No Hx Cholecystectomy: Yes (lap 2004) Hx Genitourinary Surgery: No Hx Section: No Hx Orthopedic Surgery: No Anesthesia Reaction: No - PPD History Date: 07/23/15 Results: 0 mm - Smoking Cessation Smoking history: Current every day smoker Have you smoked in the past 12 months: Yes Aproximately how many cigarettes per day: 7 Hx Chewing Tobacco Use: No Initiated information on smoking cessation: No - Substances abused Cocaine Substance route: Inhalation Frequency: Daily Amount used: 4 bags Age of first use: 46 Date of last use: 11/24/18 Heroin Substance route: Inhalation Frequency: Daily Amount used: 2 bags Age of first use: 60 Date of last use: 11/24/18 Alcohol Substance route: Oral Frequency: 3-6 times per week Amount used: 1 pint Age of first use: 38 Date of last use: 11/25/18 Admission Physical Exam S - Vital Signs Vital Signs: Vital Signs - 24 hr 11/25/18 11/25/18 09:42 10:50 Temperature 98.3 F 98.3 F Pulse Rate 90 90 Respiratory 19 19 Rate Blood Pressure 161/94 161/94 - Physical General Appearance: Yes: Mild Distress, Anxious HEENTM: Yes: EOMI, Hearing grossly Normal, Normocephalic, Muffled/Hoarse Voice Respiratory: Yes: Chest Non-Tender, Lungs Clear, Normal Breath Sounds, No Respiratory Distress, No Accessory Muscle Use, Surgical Scar (R lateral chest wall) Neck: Yes: No masses,lesions,Nodules, Trachea in good position Cardiology: Yes: Regular Rhythm, Regular Rate, S1, S2, Tachycardia Abdominal: Yes: Non Tender, Flat, Soft, Surgical Scar (lap sp - ulmbilacl scar and small incisional scar R flank) Musculoskeletal: Yes: Gait Steady, Muscle Pain Neurological: Yes: Alert, Depressed Affect Integumentary: Yes: Warm, Rash (jocelin hands w/ superficial excoriations) - Diagnostic (1) Alcohol dependence with uncomplicated withdrawal Current Visit: Yes Status: Chronic (2) Cocaine dependence Current Visit: Yes Status: Chronic Qualifiers: Substance use status: uncomplicated Qualified Code(s): F14.20 - Cocaine dependence, uncomplicated (3) Nicotine dependence Current Visit: Yes Status: Chronic Qualifiers: Nicotine product type: cigarettes Substance use status: uncomplicated Qualified Code(s): F17.210 - Nicotine dependence, cigarettes, uncomplicated (4) Opioid dependence on agonist therapy Current Visit: Yes Status: Chronic Breathalyzer - Breathalyzer Breathalyzer: 0 Urine Drug Screen - Test Device Lot number: [id number] Expiration date: 07/11/20 - Control Is test valid?: Yes - Results Drug screen NEGATIVE: No Urine drug screen results: WALTER-Cocaine, FEN-Fentanyl, MOP-Opiates, OXY-Oxycodone , MTD-Methadone, BAR-Barbiturates Inpatient Rehab Admission - Rehab Decision to Admit Inpatient rehab admission?: No
[2018-11-25] MEDS ORDERED: MELATONIN 5 MG TABLETS PO PRN (11:22)
[2018-11-25] MEDS ORDERED: BISMUTH SUBSALICYLATE 262 MG/15 ML BTL PO PRN (11:22)
[2018-11-25] MEDS ORDERED: MAG HYDROX/AL HYDROX/SIMETH 30 ML UNIT-DOSE CUP PO PRN (11:22)
[2018-11-25] MEDS ORDERED: hydrOXYzine PAMOATE 25 MG CAPSULE (FP) PO PRN (11:22)
[2018-11-25] MEDS ORDERED: MAGNESIUM CITRATE 300 ML BOTTLE PO PRN (11:22)
[2018-11-25] MEDS ORDERED: MAGNESIUM HYDROX 2400MG/30ML ORAL SUSPENSION 30 ML CUP PO PRN (11:22)
[2018-11-25] MEDS ORDERED: MENTHOL/PHENOL 1 EACH UD MM PRN (11:22)
[2018-11-25] MEDS ORDERED: diazePAM 5 MG TABLET PO PRN (11:26)
[2018-11-25] MEDS: BACITRACIN/POLYMYXIN B SULFATE 15 GM TUBE TP SCH ×2 (13:22→22:03)
[2018-11-25] MEDS: LOSARTAN POTASSIUM 50 MG TABLET (FP) PO SCH (13:22)
[2018-11-25] MEDS: ASPIRIN 81 MG CHEWABLE TABLETS PO SCH (13:22)
[2018-11-25] MEDS: diazePAM 5 MG TABLET PO SCH ×2 (14:31→22:03)
[2018-11-25] MEDS: THIAMINE HCL 100 MG TABLET (FP) PO SCH (22:04)
[2018-11-26] MEDS: diazePAM 5 MG TABLET PO SCH ×3 (05:44→22:03)
[2018-11-26] MEDS ORDERED: METHOCARBAMOL 500 MG TABLET PO PRN (09:41)
[2018-11-26] MEDS: PRENATAL VITAMINS W/ FOLIC ACID TABLET (FP) PO SCH (10:31)
[2018-11-26] MEDS: METHADONE HCL 40 MG DISPERSABLE TABLET PO SCH (10:31)
[2018-11-26] MEDS: BACITRACIN/POLYMYXIN B SULFATE 15 GM TUBE TP SCH ×2 (10:31→22:03)
[2018-11-26] MEDS: LOSARTAN POTASSIUM 50 MG TABLET (FP) PO SCH (10:31)
[2018-11-26] MEDS: ASPIRIN 81 MG CHEWABLE TABLETS PO SCH (10:31)
[2018-11-26 12:08] LABS: HEMATOCRIT 35.4 % (32.4-45.2); HEMOGLOBIN 11.7 GM/dL (10.7-15.3); MCH 30.6 pg (25.7-33.7); MCHC 33.1 g/dl (32.0-36.0); MEAN CELL VOLUME 92.4 fl (80-96); MEAN PLT VOLUME 8.7 fl (7.5-11.1); PLATELET COUNT 213 K/MM3 (134-434); RBC 3.83 M/mm3 (3.60-5.2); RDW 13.2 % (11.6-15.6); WHITE BLOOD COUNT 6.5 K/mm3 (4.0-10.0)
[2018-11-26 12:26] LABS: ALBUMIN 2.9 g/dl (3.4-5.0); BILIRUBIN,TOTAL 0.2 mg/dL (0.2-1); BLOOD UREA NITROGEN 25.7 mg/dL (7-18); CALCIUM 8.7 mg/dL (8.5-10.1); CREATININE 0.7 mg/dL (0.55-1.3); POTASSIUM 3.8 mmol/L (3.5-5.1); TOT PROT 6.2 g/dl (6.4-8.2)
--- NOTE | 2018-11-26 17:10 | PN ---
S CIWA - CIWA Score Nausea/Vomitin Muscle Tremors: None Anxiety: 4-Mod. Anxious/Guarded Agitation: 3 Paroxysmal Sweats: No Perspiration Orientation: 0-Oriented Tacttile Disturbances: 2-Mild Itch/Numbness/Burn Auditory Disturbances: 0-None Visual Disturbances: 2-Mild Sensitivity Headache: 0-None Present CIWA-Ar Total Score: 14 BHS Progress Note (SOAP) Subjective: Nausea, Anxious, Body Aches. Objective: PATIENT A & O X 3, OBSERVED AMBULATING ON DETOX UNIT UNASSISTED. IN NO ACUTE DISTRESS. 11/26/18 17:08 Vital Signs Temperature 98 F 11/26/18 13:52 Pulse Rate 68 11/26/18 13:52 Respiratory Rate 16 11/26/18 13:52 Blood Pressure 133/78 11/26/18 13:52 O2 Sat by Pulse Oximetry (%) Laboratory Tests 11/26/18 11/26/18 08:20 08:20 WBC 6.5 RBC 3.83 Hgb 11.7 Hct 35.4 MCV 92.4 MCH 30.6 MCHC 33.1 RDW 13.2 Plt Count 213 MPV 8.7 Sodium 145 Potassium 3.8 Chloride 109 H Carbon Dioxide 30 Anion Gap 6 L BUN 25.7 H Creatinine 0.7 Est GFR (CKD-EPI)AfAm 105.38 Est GFR (CKD-EPI)NonAf 90.92 Random Glucose 84 Calcium 8.7 Total Bilirubin 0.2 AST 36 ALT 41 Alkaline Phosphatase 121 H Total Protein 6.2 L Albumin 2.9 L LABS NOTED. RESULTS OF DETOX ADMISSION RPR AND HIV AB TESTS PENDING. 11/26/18 17:08 Assessment: 11/26/18 17:09 WITHDRAWAL SYMPTOMS. Plan: CONTINUE DETOX. INCREASE DAILY PO WATER INTAKE.
[2018-11-26] MEDS: THIAMINE HCL 100 MG TABLET (FP) PO SCH (22:02)
[2018-11-27] MEDS: METHADONE HCL 40 MG DISPERSABLE TABLET PO SCH (05:19)
[2018-11-27] MEDS ORDERED: diazePAM 5 MG TABLET PO ONE (06:00)
[2018-11-27 09:07] VITALS: BP 122/71; PULSE 67; TEMP 98.5
--- NOTE | 2018-11-27 09:49 | DS ---
[facility] Detox Discharge Summary Admission Date: 11/25/18 Discharge Date: 11/27/18 - History Present History: Alcohol Dependence Additional Comments: 63 years old female admitted on 11/25/18 did well with Valium detox regimen received methadone 40 mg po daily long history of hypertension teated with losartan 50 mg po daily left wrist skin abrasion healed no open would noted no redness no discharge bruise noted on left wrist alert oriented x [address] discuss aftercare in [facility] cardiac S1S2 regular rate rhythm respiratory clear lung on auscultation, diminished lung sound on right and left lower lobes abdomen soft no rebound tenderness skin: multiple bruises noted on wrist and legs no open wound noted - Physical Exam Results Vital Signs: Vital Signs Temperature 98.5 F 11/27/18 09:07 Pulse Rate 67 11/27/18 09:07 Respiratory Rate 16 11/27/18 09:07 Blood Pressure 122/71 11/27/18 09:07 O2 Sat by Pulse Oximetry (%) Pertinent Admission Physical Exam Findings: alcohol withdrawal sx Laboratory Last Values WBC 6.5 K/mm3 (4.0-10.0) 11/26/18 08:20 RBC 3.83 M/mm3 (3.60-5.2) 11/26/18 08:20 Hgb 11.7 GM/dL (10.7-15.3) 11/26/18 08:20 Hct 35.4 % (32.4-45.2) 11/26/18 08:20 MCV 92.4 fl (80-96) 11/26/18 08:20 MCH 30.6 pg (25.7-33.7) 11/26/18 08:20 MCHC 33.1 g/dl (32.0-36.0) 11/26/18 08:20 RDW 13.2 % (11.6-15.6) 11/26/18 08:20 Plt Count 213 K/MM3 (134-434) 11/26/18 08:20 MPV 8.7 fl (7.5-11.1) 11/26/18 08:20 Sodium 145 mmol/L (136-145) 11/26/18 08:20 Potassium 3.8 mmol/L (3.5-5.1) 11/26/18 08:20 Chloride 109 mmol/L (98-107) H 11/26/18 08:20 Carbon Dioxide 30 mmol/L (21-32) 11/26/18 08:20 Anion Gap 6 MMOL/L (8-16) L 11/26/18 08:20 BUN 25.7 mg/dL (7-18) H 11/26/18 08:20 Creatinine 0.7 mg/dL (0.55-1.3) 11/26/18 08:20 Est GFR (CKD-EPI)AfAm 105.38 11/26/18 08:20 Est GFR (CKD-EPI)NonAf 90.92 11/26/18 08:20 Random Glucose 84 mg/dL (74-106) 11/26/18 08:20 Calcium 8.7 mg/dL (8.5-10.1) 11/26/18 08:20 Total Bilirubin 0.2 mg/dL (0.2-1) 11/26/18 08:20 AST 36 U/L (15-37) 11/26/18 08:20 ALT 41 U/L (13-61) 11/26/18 08:20 Alkaline Phosphatase 121 U/L (45-117) H 11/26/18 08:20 Total Protein 6.2 g/dl (6.4-8.2) L 11/26/18 08:20 Albumin 2.9 g/dl (3.4-5.0) L 11/26/18 08:20 HIV 1&2 Antibody Screen Negative 11/26/18 08:20 HIV P24 Antigen Negative 11/26/18 08:20 lab noted - Treatment Hospital Course: Detox Protocol Followed, Detoxed Safely, Responded well, Discharged Condition Good, Rehab Referral Accepted Patient has Accepted a Rehab Referral to: [facility] - Medication Discharge Medications: Ambulatory Orders Aspirin 1 tab PO DAILY #14 tab.chew 09/30/18 Losartan Potassium [Cozaar -] 50 mg PO DAILY #14 tablet 09/30/18 - Diagnosis (1) Alcohol dependence with uncomplicated withdrawal Current Visit: Yes Status: Acute (2) Nicotine dependence Current Visit: Yes Status: Acute Qualifiers: Nicotine product type: cigarettes Substance use status: in withdrawal Qualified Code(s): F17.213 - Nicotine dependence, cigarettes, with withdrawal (3) Substance induced mood disorder Current Visit: Yes Status: Suspected (4) Weight loss Current Visit: Yes Status: Acute (5) Methadone maintenance therapy patient Current Visit: Yes Status: Chronic (6) Lung cancer Current Visit: Yes Status: Resolved Qualifiers: Laterality: unspecified laterality Lung location: unspecified part of lung Qualified Code(s): C34.90 - Malignant neoplasm of unspecified part of unspecified bronchus or lung - AMA Did Patient Leave Against Medical Advice: No CIWA Score - CIWA Score Nausea/Vomitin-No Nausea/No Vomiting Muscle Tremors: 2 Anxiety: 2 Agitation: 2 Paroxysmal Sweats: 1-Minimal Palms Moist Orientation: 0-Oriented Tacttile Disturbances: 1-Very Mild Itch/Numbness Auditory Disturbances: 0-None Visual Disturbances: 1-Very Mild Sensitivity Headache: 0-None Present CIWA-Ar Total Score: 9
[2018-11-27] MEDS: PRENATAL VITAMINS W/ FOLIC ACID TABLET (FP) PO SCH (10:23)
[2018-11-27] MEDS: ASPIRIN 81 MG CHEWABLE TABLETS PO SCH (10:24)
[2018-11-27] MEDS: BACITRACIN/POLYMYXIN B SULFATE 15 GM TUBE TP SCH (10:24)
[2018-11-27] MEDS: LOSARTAN POTASSIUM 50 MG TABLET (FP) PO SCH (10:24)
== END 2018-11-27 12:26 | disposition other institution (70) | DRG 897 ==
LOC: YASAS 09:27 → Y3N 11:54
PROVIDERS: ADMIT Allergy & Immunology; ATTEND Allergy & Immunology
PROC: HZ2ZZZZ Detoxification Services for Substance Abuse Treatment (ICD-10-PCS; principal; 2018-11-25)
DX: F10.230 Alcohol dependence with withdrawal, uncomplicated (principal); F11.20 Opioid dependence, uncomplicated; F14.20 Cocaine dependence, uncomplicated; F17.213 Nicotine dependence, cigarettes, with withdrawal; F19.24 Other psychoactive substance dependence with psychoactive substance-induced mood disorder; I10 Essential (primary) hypertension; R63.4 Abnormal weight loss; Z68.20 Body mass index [BMI] 20.0-20.9, adult; Z85.118 Personal history of other malignant neoplasm of bronchus and lung; Z90.2 Acquired absence of lung [part of]; Z90.49 Acquired absence of other specified parts of digestive tract
CPT/HCPCS: 36415; 80053; 85027; 86593; 87389

== ENCOUNTER 2018-11-27 12:12 | Inpatient (IN) | payer MEDICARE, OTHER ==
--- NOTE | 2018-11-27 13:58 | HP ---
[facility] Rehab Assess/Revision - Admission History Admitted to Rehab from: [facility] Date of Admission to Rehab: 11/27/18 - Vital signs Vital Signs: Vital Signs Period Temp Pulse Resp BP Sys/Reina Pulse Ox Last 24 Hr 97.1 F 63 16 143/74 - Findings Detox History & Physical reviewed: Yes Concur with findings: Yes Comments/Additional Findings: transferred from detox to rehab admission as per protocol Inpatient Rehab Admission - Rehab Decision to Admit Inpatient rehab admission?: Yes - Initial Determination Are CD services needed?: Yes Free of communicable disease: Yes Not in need of hospitalization: Yes - Rehab Admission Criteria Previous failed treatment: Yes Poor recovery environment: Yes Comorbidities: Yes Lacks judgement: Yes Patient is meeting Inpatient Rehab admission criteria:: Yes
[2018-11-27] MEDS ORDERED: LOPERAMIDE HCL 2 MG CAPSULE PO PRN (14:01)
[2018-11-27] MEDS ORDERED: MAG HYDROX/AL HYDROX/SIMETH 30 ML UNIT-DOSE CUP PO PRN (14:01)
[2018-11-27] MEDS ORDERED: P-EPHED 60MG/TRIPROLIDI 2.5MG TABLET PO PRN (14:01)
[2018-11-27] MEDS ORDERED: IBUPROFEN 400 MG TABLET (FP) PO PRN (14:01)
[2018-11-27] MEDS ORDERED: MAGNESIUM CITRATE 300 ML BOTTLE PO PRN (14:01)
[2018-11-27] MEDS ORDERED: MENTHOL/PHENOL 1 EACH UD MM PRN (14:01)
[2018-11-27] MEDS ORDERED: guaiFENesin 200 MG/10 ML 10 ML UNIT-DOSE CUPS PO PRN (14:01)
[2018-11-27] MEDS ORDERED: ACETAMINOPHEN 325 MG TABLET (FP) PO PRN (14:01)
[2018-11-27] MEDS: THIAMINE HCL 100 MG TABLET (FP) PO SCH (21:35)
[2018-11-27] MEDS: BACITRACIN 15 GM TUBE TOPICAL OINTMENT TP SCH (21:36)
[2018-11-28] MEDS: METHADONE HCL 40 MG DISPERSABLE TABLET PO SCH (06:27)
[2018-11-28] MEDS ORDERED: PT OWN MED DRAWER 7, Y5N ONE ×2 (08:40→12:45)
[2018-11-28] MEDS: LOSARTAN POTASSIUM 50 MG TABLET (FP) PO SCH (09:22)
[2018-11-28] MEDS: PRENATAL VITAMINS W/ FOLIC ACID TABLET (FP) PO SCH (09:22)
[2018-11-28] MEDS: ASPIRIN 81 MG CHEWABLE TABLETS PO SCH (09:23)
[2018-11-28] MEDS: BACITRACIN 15 GM TUBE TOPICAL OINTMENT TP SCH ×2 (09:26→21:40)
[2018-11-28] MEDS: METHYL SALICYLATE/MENTHOL OINT 30 GM TUBE TP SCH ×2 (10:58→21:40)
[2018-11-28] MEDS: MELATONIN 5 MG TABLETS PO PRN (21:40)
[2018-11-28] MEDS: THIAMINE HCL 100 MG TABLET (FP) PO SCH (21:40)
[2018-11-29] MEDS: METHADONE HCL 40 MG DISPERSABLE TABLET PO SCH (06:17)
[2018-11-29] MEDS: PRENATAL VITAMINS W/ FOLIC ACID TABLET (FP) PO SCH (09:22)
[2018-11-29] MEDS: LOSARTAN POTASSIUM 50 MG TABLET (FP) PO SCH (09:22)
[2018-11-29] MEDS: ASPIRIN 81 MG CHEWABLE TABLETS PO SCH (09:22)
[2018-11-29] MEDS: BACITRACIN 15 GM TUBE TOPICAL OINTMENT TP SCH ×2 (09:22→21:26)
[2018-11-29] MEDS: METHYL SALICYLATE/MENTHOL OINT 30 GM TUBE TP SCH ×2 (09:23→21:26)
[2018-11-29] MEDS: hydrOXYzine PAMOATE 25 MG CAPSULE (FP) PO PRN ×2 (12:40→21:24)
[2018-11-29] MEDS: THIAMINE HCL 100 MG TABLET (FP) PO SCH (21:24)
[2018-11-29] MEDS: MELATONIN 5 MG TABLETS PO PRN (21:24)
[2018-11-30] MEDS: hydrOXYzine PAMOATE 25 MG CAPSULE (FP) PO PRN ×2 (05:47→21:27)
[2018-11-30] MEDS: METHADONE HCL 40 MG DISPERSABLE TABLET PO SCH (05:47)
[2018-11-30] MEDS ORDERED: PT OWN MED DRAWER 7, Y5N ONE (08:40)
[2018-11-30] MEDS: PRENATAL VITAMINS W/ FOLIC ACID TABLET (FP) PO SCH (10:08)
[2018-11-30] MEDS: BACITRACIN 15 GM TUBE TOPICAL OINTMENT TP SCH ×2 (10:08→21:28)
[2018-11-30] MEDS: LOSARTAN POTASSIUM 50 MG TABLET (FP) PO SCH (10:08)
[2018-11-30] MEDS: ASPIRIN 81 MG CHEWABLE TABLETS PO SCH (10:08)
[2018-11-30] MEDS: METHYL SALICYLATE/MENTHOL OINT 30 GM TUBE TP SCH ×2 (10:08→21:28)
[2018-11-30] MEDS: THIAMINE HCL 100 MG TABLET (FP) PO SCH (21:27)
[2018-11-30] MEDS: MELATONIN 5 MG TABLETS PO PRN (21:27)
[2018-12-01] MEDS: METHADONE HCL 40 MG DISPERSABLE TABLET PO SCH (06:19)
[2018-12-01] MEDS: hydrOXYzine PAMOATE 25 MG CAPSULE (FP) PO PRN ×3 (06:20→21:16)
[2018-12-01] MEDS ORDERED: PT OWN MED DRAWER 7, Y5N ONE ×2 (08:39→10:57)
[2018-12-01] MEDS: LOSARTAN POTASSIUM 50 MG TABLET (FP) PO SCH (09:58)
[2018-12-01] MEDS: PRENATAL VITAMINS W/ FOLIC ACID TABLET (FP) PO SCH (09:58)
[2018-12-01] MEDS: ASPIRIN 81 MG CHEWABLE TABLETS PO SCH (09:58)
[2018-12-01] MEDS: METHYL SALICYLATE/MENTHOL OINT 30 GM TUBE TP SCH (10:00)
[2018-12-01] MEDS: BACITRACIN 15 GM TUBE TOPICAL OINTMENT TP SCH ×2 (10:00→21:17)
--- NOTE | 2018-12-01 11:08 | CONSULT ---
[facility] Psychiatric Consult - Data Date of interview: 12/01/18 Admission source: Self-referred Identifying data: Ms Naranjo is a 63 years old single female, mother of 3 children, unemployed receiving SSI, domiciled living with her brother admitted for detox on 11/27/18 for inpatient rehab for alcohol, opioid and cocaine Substance Abuse History: Reports history of alcohol, heroin and cocaine use. Refer to addiction counselor's summary for further information Medical History: Significant for hypertension, emphysema, history surgeries( right upper lobectomy in 2011 and lap cholecystectomy in 2004). Patient is on methadone 40 mg/day from [facility]. Smokes 7 cigarettes daily Psychiatric History: Patient is known to pattern chart writer from an encounter during a recent admission to this facility in September 2018. Historical narrative remains consistent. She reports that she saw a psychiatrist years ago at [facility] for depression and anxiety. She claims that she was prescribed medication which she does not recall the name and did not take for long. External medication history shows script for 30 days supply of Celexa 10 mg/day prescribed by Aaron kent at [facility] on 08/26/18. When asked about above information, patient is not aware of being prescribed Celexa and she is not sure if she has taken it. However, she said that it could have been prescribed by her primary care physician. She does not know the name of her PCP. Denies previous psychiatric hospitalization or suicidal attempt. However, reports feeling depressed and sleeping poorly Physical/Sexual Abuse/Trauma History: Denies history of emotional, physical or sexual abuse as well as DV relationship Additional Comment: Denies criminal history Mental Status Exam - Mental Status Exam Alert and Oriented to: Place, Person Patient Appearance: Well Groomed Mood: Depressed Affect: Appropriate Speech Pattern: Clear Voice Loudness: Normal Thought Process: Intact, Goal Oriented Hallucinations: Denies Suicidal Ideation: Denies Homicidal Ideation: Denies Insight/Judgement: Fair Sleep: Poorly Appetite: Poor Muscle strength/Tone: Normal Gait/Station: Normal Psychiatric Findings - Problem List ([place] 1, 2,3) (1) Depressive disorder Current Visit: Yes Status: Chronic (2) Substance induced mood disorder Current Visit: Yes Status: Acute (3) Substance-induced sleep disorder Current Visit: Yes Status: Acute (4) Alcohol dependence Current Visit: Yes Status: Acute (5) Cocaine dependence Current Visit: No Status: Acute Qualifiers: Substance use status: uncomplicated Qualified Code(s): F14.20 - Cocaine dependence, uncomplicated (6) Opioid dependence on agonist therapy Current Visit: No Status: Chronic (7) Nicotine dependence Current Visit: No Status: Chronic Qualifiers: Nicotine product type: cigarettes Substance use status: in withdrawal Qualified Code(s): F17.213 - Nicotine dependence, cigarettes, with withdrawal (8) Hypertension Current Visit: No Status: Chronic Qualifiers: Hypertension type: essential hypertension Qualified Code(s): I10 - Essential (primary) hypertension Comment: re-took BP 153/82 pulse 110 (9) Lung cancer Current Visit: No Status: Resolved Qualifiers: Laterality: unspecified laterality Lung location: unspecified part of lung Qualified Code(s): C34.90 - Malignant neoplasm of unspecified part of unspecified bronchus or lung - Initial Treatment Plan Initial Treatment Plan: 1) Start Belsomra 10 mg po HS prn for insomnia. 2) Continue inpatient detoxification
[2018-12-01] MEDS: DOCUSATE SODIUM 100 MG CAPSULE (FP) PO SCH ×2 (13:42→21:16)
[2018-12-01] MEDS: THIAMINE HCL 100 MG TABLET (FP) PO SCH (21:16)
[2018-12-01] MEDS: SUVOREXANT 10 MG TABLET PO PRN (21:17)
[2018-12-02] MEDS: DOCUSATE SODIUM 100 MG CAPSULE (FP) PO SCH ×3 (06:31→21:36)
[2018-12-02] MEDS: METHADONE HCL 40 MG DISPERSABLE TABLET PO SCH (06:31)
[2018-12-02] MEDS: BACITRACIN 15 GM TUBE TOPICAL OINTMENT TP SCH ×2 (10:19→21:37)
[2018-12-02] MEDS: LOSARTAN POTASSIUM 50 MG TABLET (FP) PO SCH (10:19)
[2018-12-02] MEDS: ASPIRIN 81 MG CHEWABLE TABLETS PO SCH (10:19)
[2018-12-02] MEDS: PRENATAL VITAMINS W/ FOLIC ACID TABLET (FP) PO SCH (10:19)
[2018-12-02] MEDS: hydrOXYzine PAMOATE 25 MG CAPSULE (FP) PO PRN ×2 (10:20→21:36)
[2018-12-02] MEDS ORDERED: TRIAMCINOLONE ACET 0.1% CREAM 15 GM TUBE TP SCH (11:30)
--- NOTE | 2018-12-02 11:31 | PN ---
B[facility] Progress Note (SOAP) Subjective: itchy rash bilaterally on forearms. states she uses a medication ordered by her PCP. Objective: Raised red areas from wrist to antecubital area on medial aspect of both arms. 12/02/18 11:30 Assessment: Rash, 12/02/18 11:31 Vital Signs (72 hours) 11/29/18 11/29/18 11/30/18 12:00 22:00 00:30 Temperature Pulse Rate 62 73 Respiratory 18 16 Rate Blood Pressure 132/71 158/68 11/30/18 11/30/18 11/30/18 03:30 07:03 09:24 Temperature 98.0 F Pulse Rate 66 71 Respiratory 16 16 18 Rate Blood Pressure 148/76 116/67 12/01/18 12/01/18 12/01/18 00:30 03:30 07:01 Temperature 98.1 F Pulse Rate 64 Respiratory 18 18 18 Rate Blood Pressure 153/83 12/02/18 12/02/18 12/02/18 00:30 03:30 07:18 Temperature 97.7 F Pulse Rate 55 L Respiratory 18 18 18 Rate Blood Pressure 164/82 12/02/18 09:26 Temperature Pulse Rate 73 Respiratory Rate Blood Pressure 126/63 Plan: triamcilone ordered.
[2018-12-02] MEDS: THIAMINE HCL 100 MG TABLET (FP) PO SCH (21:36)
[2018-12-02] MEDS: SUVOREXANT 10 MG TABLET PO PRN (21:38)
[2018-12-03] MEDS: hydrOXYzine PAMOATE 25 MG CAPSULE (FP) PO PRN ×3 (06:19→21:18)
[2018-12-03] MEDS: METHADONE HCL 40 MG DISPERSABLE TABLET PO SCH (06:19)
[2018-12-03] MEDS: DOCUSATE SODIUM 100 MG CAPSULE (FP) PO SCH ×3 (06:19→21:18)
[2018-12-03] MEDS ORDERED: COLLOIDAL OATMEAL 1 BAR EACH TP PRN (09:11)
[2018-12-03] MEDS: TRIAMCINOLONE ACET 0.1% CREAM 15 GM TUBE TP SCH ×2 (10:10→21:19)
[2018-12-03] MEDS: ASPIRIN 81 MG CHEWABLE TABLETS PO SCH (10:11)
[2018-12-03] MEDS: PRENATAL VITAMINS W/ FOLIC ACID TABLET (FP) PO SCH (10:11)
[2018-12-03] MEDS: LOSARTAN POTASSIUM 50 MG TABLET (FP) PO SCH (10:11)
[2018-12-03] MEDS: BACITRACIN 15 GM TUBE TOPICAL OINTMENT TP SCH ×2 (10:11→21:19)
--- NOTE | 2018-12-03 14:06 | PN ---
S Progress Note Note: Patient reports sleeping poorly despite taking Belsomra 10 mg/hs. Will increase Belsomra dosage to 20 mg/hs
[2018-12-03] MEDS: SUVOREXANT 20 MG TABLET PO PRN (21:18)
[2018-12-03] MEDS: THIAMINE HCL 100 MG TABLET (FP) PO SCH (21:18)
[2018-12-03] MEDS ORDERED: BENZOCAINE 20 % GEL TUBE MM PRN (22:15)
--- NOTE | 2018-12-03 22:15 | PN ---
BHS Progress Note Note: C/o tooth ache. Vital Signs - 24 hr 12/03/18 12/03/18 12/03/18 00:30 07:31 22:16 Temperature 97.4 F L 99 F Pulse Rate 55 L 80 Respiratory 18 18 18 Rate Blood Pressure 173/71 H 200/80 H Plan: Clonidine for elevated B/P/ Ibuprofen for pain. Orajel for pain.
[2018-12-03] MEDS ORDERED: IBUPROFEN 600 MG TABLET (FP) PO PRN (22:16)
[2018-12-03] MEDS ORDERED: cloNIDine HCL 0.1 MG TABLET PO ONE (22:18)
[2018-12-04] MEDS: METHADONE HCL 40 MG DISPERSABLE TABLET PO SCH (06:10)
[2018-12-04] MEDS: hydrOXYzine PAMOATE 25 MG CAPSULE (FP) PO PRN ×3 (06:10→21:18)
[2018-12-04] MEDS: DOCUSATE SODIUM 100 MG CAPSULE (FP) PO SCH ×3 (06:10→21:18)
[2018-12-04] MEDS: ASPIRIN 81 MG CHEWABLE TABLETS PO SCH (10:11)
[2018-12-04] MEDS: BACITRACIN 15 GM TUBE TOPICAL OINTMENT TP SCH ×2 (10:11→21:20)
[2018-12-04] MEDS: TRIAMCINOLONE ACET 0.1% CREAM 15 GM TUBE TP SCH ×2 (10:11→21:18)
[2018-12-04] MEDS: LOSARTAN POTASSIUM 50 MG TABLET (FP) PO SCH (10:11)
[2018-12-04] MEDS: PRENATAL VITAMINS W/ FOLIC ACID TABLET (FP) PO SCH (10:11)
[2018-12-04] MEDS: THIAMINE HCL 100 MG TABLET (FP) PO SCH (21:18)
[2018-12-04] MEDS ORDERED: PT OWN MED DRAWER 7, Y5N ONE (21:20)
[2018-12-04] MEDS: SUVOREXANT 20 MG TABLET PO PRN (22:09)
[2018-12-05] MEDS: DOCUSATE SODIUM 100 MG CAPSULE (FP) PO SCH ×3 (06:18→21:14)
[2018-12-05] MEDS: METHADONE HCL 40 MG DISPERSABLE TABLET PO SCH (06:18)
[2018-12-05] MEDS: hydrOXYzine PAMOATE 25 MG CAPSULE (FP) PO PRN ×3 (06:18→21:18)
[2018-12-05] MEDS: MAGNESIUM HYDROX 2400MG/30ML ORAL SUSPENSION 30 ML CUP PO PRN (06:35)
[2018-12-05] MEDS: ASPIRIN 81 MG CHEWABLE TABLETS PO SCH (09:11)
[2018-12-05] MEDS: PRENATAL VITAMINS W/ FOLIC ACID TABLET (FP) PO SCH (09:12)
[2018-12-05] MEDS: TRIAMCINOLONE ACET 0.1% CREAM 15 GM TUBE TP SCH ×2 (09:12→21:19)
[2018-12-05] MEDS: BACITRACIN 15 GM TUBE TOPICAL OINTMENT TP SCH ×2 (09:12→21:16)
[2018-12-05] MEDS: LOSARTAN POTASSIUM 50 MG TABLET (FP) PO SCH (09:12)
--- NOTE | 2018-12-05 18:29 | PN ---
[facility] Progress Note Note: Psychiatry Attending's note : Belsomra renewed as requested. Chart reviewed. Medication confirmed. Belsomra 15 mg po hs prn.
[2018-12-05] MEDS: THIAMINE HCL 100 MG TABLET (FP) PO SCH (21:15)
[2018-12-05] MEDS: SUVOREXANT 15 MG TABLET PO PRN (21:16)
[2018-12-06] MEDS: DOCUSATE SODIUM 100 MG CAPSULE (FP) PO SCH ×3 (06:15→22:00)
[2018-12-06] MEDS: METHADONE HCL 40 MG DISPERSABLE TABLET PO SCH (06:16)
[2018-12-06] MEDS: PRENATAL VITAMINS W/ FOLIC ACID TABLET (FP) PO SCH (10:00)
[2018-12-06] MEDS: ASPIRIN 81 MG CHEWABLE TABLETS PO SCH (10:00)
[2018-12-06] MEDS: LOSARTAN POTASSIUM 50 MG TABLET (FP) PO SCH (10:00)
[2018-12-06] MEDS: BACITRACIN 15 GM TUBE TOPICAL OINTMENT TP SCH ×2 (10:00→22:01)
[2018-12-06] MEDS: TRIAMCINOLONE ACET 0.1% CREAM 15 GM TUBE TP SCH ×2 (10:01→22:02)
[2018-12-06] MEDS: hydrOXYzine PAMOATE 25 MG CAPSULE (FP) PO PRN ×2 (10:02→22:00)
[2018-12-06] MEDS: MAGNESIUM HYDROX 2400MG/30ML ORAL SUSPENSION 30 ML CUP PO PRN (18:11)
[2018-12-06] MEDS ORDERED: cloNIDine HCL 0.1 MG TABLET PO ONE (21:21)
[2018-12-06] MEDS: HYDROCHLOROTHIAZIDE 25 MG TABLET (FP) PO SCH (22:00)
[2018-12-06] MEDS: THIAMINE HCL 100 MG TABLET (FP) PO SCH (22:00)
[2018-12-06] MEDS: SUVOREXANT 15 MG TABLET PO PRN (22:01)
[2018-12-07] MEDS: DOCUSATE SODIUM 100 MG CAPSULE (FP) PO SCH ×3 (06:02→21:53)
[2018-12-07] MEDS: METHADONE HCL 40 MG DISPERSABLE TABLET PO SCH (06:02)
[2018-12-07] MEDS: ASPIRIN 81 MG CHEWABLE TABLETS PO SCH (10:05)
[2018-12-07] MEDS: LOSARTAN POTASSIUM 50 MG TABLET (FP) PO SCH (10:05)
[2018-12-07] MEDS: HYDROCHLOROTHIAZIDE 25 MG TABLET (FP) PO SCH ×2 (10:05→21:53)
[2018-12-07] MEDS: PRENATAL VITAMINS W/ FOLIC ACID TABLET (FP) PO SCH (10:05)
[2018-12-07] MEDS: TRIAMCINOLONE ACET 0.1% CREAM 15 GM TUBE TP SCH ×2 (10:05→21:54)
[2018-12-07] MEDS: BACITRACIN 15 GM TUBE TOPICAL OINTMENT TP SCH ×2 (10:06→21:54)
[2018-12-07] MEDS: hydrOXYzine PAMOATE 25 MG CAPSULE (FP) PO PRN ×2 (10:07→19:27)
[2018-12-07] MEDS: THIAMINE HCL 100 MG TABLET (FP) PO SCH (21:52)
[2018-12-07] MEDS: SUVOREXANT 15 MG TABLET PO PRN (21:55)
[2018-12-07] MEDS: MAGNESIUM HYDROX 2400MG/30ML ORAL SUSPENSION 30 ML CUP PO PRN (21:57)
[2018-12-08] MEDS: METHADONE HCL 40 MG DISPERSABLE TABLET PO SCH (06:09)
[2018-12-08] MEDS: DOCUSATE SODIUM 100 MG CAPSULE (FP) PO SCH ×3 (06:09→21:45)
[2018-12-08] MEDS ORDERED: PT OWN MED DRAWER 7, Y5N ONE ×2 (09:13→09:14)
[2018-12-08] MEDS: BACITRACIN 15 GM TUBE TOPICAL OINTMENT TP SCH ×2 (10:09→21:45)
[2018-12-08] MEDS: PRENATAL VITAMINS W/ FOLIC ACID TABLET (FP) PO SCH (10:10)
[2018-12-08] MEDS: HYDROCHLOROTHIAZIDE 25 MG TABLET (FP) PO SCH ×2 (10:10→21:45)
[2018-12-08] MEDS: ASPIRIN 81 MG CHEWABLE TABLETS PO SCH (10:10)
[2018-12-08] MEDS: LOSARTAN POTASSIUM 50 MG TABLET (FP) PO SCH (10:10)
[2018-12-08] MEDS: hydrOXYzine PAMOATE 25 MG CAPSULE (FP) PO PRN ×2 (10:11→21:45)
[2018-12-08] MEDS: TRIAMCINOLONE ACET 0.1% CREAM 15 GM TUBE TP SCH ×2 (10:50→21:46)
[2018-12-08] MEDS: THIAMINE HCL 100 MG TABLET (FP) PO SCH (21:45)
[2018-12-08] MEDS: SUVOREXANT 15 MG TABLET PO PRN (21:47)
[2018-12-09] MEDS: hydrOXYzine PAMOATE 25 MG CAPSULE (FP) PO PRN ×3 (06:19→21:50)
[2018-12-09] MEDS: METHADONE HCL 40 MG DISPERSABLE TABLET PO SCH (06:19)
[2018-12-09] MEDS: DOCUSATE SODIUM 100 MG CAPSULE (FP) PO SCH ×3 (06:19→21:50)
[2018-12-09] MEDS ORDERED: PT OWN MED DRAWER 7, Y5N ONE ×3 (08:51→22:13)
[2018-12-09] MEDS: TRIAMCINOLONE ACET 0.1% CREAM 15 GM TUBE TP SCH ×2 (09:51→21:52)
[2018-12-09] MEDS: BACITRACIN 15 GM TUBE TOPICAL OINTMENT TP SCH ×2 (09:52→21:52)
[2018-12-09] MEDS: ASPIRIN 81 MG CHEWABLE TABLETS PO SCH (09:52)
[2018-12-09] MEDS: LOSARTAN POTASSIUM 50 MG TABLET (FP) PO SCH (09:53)
[2018-12-09] MEDS: HYDROCHLOROTHIAZIDE 25 MG TABLET (FP) PO SCH ×2 (09:53→21:50)
[2018-12-09] MEDS: PRENATAL VITAMINS W/ FOLIC ACID TABLET (FP) PO SCH (09:53)
--- NOTE | 2018-12-09 15:33 | PN ---
[facility] Progress Note (SOAP) Subjective: patient c/o frequent painful urination and genital itching. Objective: General: no apparent distress Abd: soft, non-tender, non-distended, +BS Neuro: 2-12 intact skin: clear Lungs: clear Heart: s1 s2 12/09/18 15:30 12/09/18 13:30 Urine Culture - Pending Urine - Urine Clean Catch Vital Signs (72 hours) 12/06/18 12/07/18 12/07/18 20:40 00:23 00:30 Temperature Pulse Rate 77 65 Respiratory 18 Rate Blood Pressure 216/116 H 98/51 L 12/07/18 12/07/18 12/07/18 03:30 07:14 09:25 Temperature 98.3 F Pulse Rate 55 L 65 Respiratory 17 18 Rate Blood Pressure 139/74 129/65 12/07/18 12/08/18 12/08/18 20:40 00:30 03:30 Temperature Pulse Rate 73 Respiratory 18 18 Rate Blood Pressure 138/72 12/08/18 12/08/18 12/09/18 07:10 10:00 07:01 Temperature 97.5 F L 97.9 F Pulse Rate 62 72 84 Respiratory 18 16 Rate Blood Pressure 168/73 158/74 152/78 12/09/18 12/09/18 09:06 12:15 Temperature Pulse Rate 75 78 Respiratory 18 18 Rate Blood Pressure 169/82 165/89 Assessment: Urinary tract infection 12/09/18 15:31 Plan: Augmentin ordered (macrobid or levaquin contraindicated with patient's medication regimen). Urine culture ordered. Will continue to monitor.
[2018-12-09] MEDS: AMOX TR/POT CLAV 250MG/125MG TABLETS PO SCH (17:44)
[2018-12-09] MEDS: THIAMINE HCL 100 MG TABLET (FP) PO SCH (21:50)
[2018-12-09] MEDS: SUVOREXANT 15 MG TABLET PO PRN (21:51)
[2018-12-10] MEDS: METHADONE HCL 40 MG DISPERSABLE TABLET PO SCH (06:22)
[2018-12-10] MEDS: hydrOXYzine PAMOATE 25 MG CAPSULE (FP) PO PRN ×3 (06:22→22:27)
[2018-12-10] MEDS: DOCUSATE SODIUM 100 MG CAPSULE (FP) PO SCH ×3 (06:22→22:24)
[2018-12-10] MEDS: AMOX TR/POT CLAV 250MG/125MG TABLETS PO SCH ×2 (07:39→18:28)
[2018-12-10] MEDS ORDERED: PT OWN MED DRAWER 7, Y5N ONE ×3 (08:49→20:36)
[2018-12-10] MEDS: ASPIRIN 81 MG CHEWABLE TABLETS PO SCH (09:53)
[2018-12-10] MEDS: PRENATAL VITAMINS W/ FOLIC ACID TABLET (FP) PO SCH (09:53)
[2018-12-10] MEDS: LOSARTAN POTASSIUM 50 MG TABLET (FP) PO SCH (09:53)
[2018-12-10] MEDS: HYDROCHLOROTHIAZIDE 25 MG TABLET (FP) PO SCH ×2 (09:54→22:24)
[2018-12-10] MEDS: TRIAMCINOLONE ACET 0.1% CREAM 15 GM TUBE TP SCH ×2 (09:54→22:23)
[2018-12-10] MEDS: BACITRACIN 15 GM TUBE TOPICAL OINTMENT TP SCH ×2 (09:54→22:22)
--- NOTE | 2018-12-10 12:45 | PN ---
Psychiatric Progress Note Vital Signs: Vital Signs Period Temp Pulse Resp BP Sys/Reina Pulse Ox Last 24 Hr 97.8 F 71-81 16-18 156-163/78-83 Date of Session: 12/10/18 Chief Complaint:: "i'm not sleeping through the night." HPI: Patient admitted to [facility] for inpatient rehab for alcohol, opioid and cocaine. Patient reports sleeping poorly. ROS: Patient is coherent, alert + oriented x3. Current Medications: Active Medications Generic Name Dose Route Start Last Admin Trade Name Freq PRN Reason Stop Dose Admin Acetaminophen 650 mg 11/27/18 14:01 11/28/18 09:24 Tylenol - PO 650 mg Q4H PRN Administration FEVER Al Hydroxide/Mg Hydroxide 30 ml 11/27/18 14:01 Mylanta Oral Suspension - PO Q6H PRN DYSPEPSIA Amoxicillin/Clavulanate Potassium 1 tab 12/09/18 17:30 12/10/18 07:39 Augmentin - 250mg Tablet PO 12/16/18 23:00 1 tab BID@0800,1730 YG Administration Aspirin 81 mg 11/28/18 10:00 12/10/18 09:53 Asa - PO 81 mg DAILY YG Administration Bacitracin 1 applic 11/27/18 22:00 12/10/18 09:54 Bacitracin - TP 1 applic BID YG Administration Benzocaine 1 applic 12/03/18 22:15 Anbesol - MM Q6H PRN FOR TOOTHACHE Colloidal Oatmeal 1 applic 12/03/18 09:11 Aveeno Soap - TP DAILY PRN HYGEINE Docusate Sodium 100 mg 12/01/18 14:00 12/10/18 06:22 Colace - PO 100 mg TID YG Administration Eucalyptus/Menthol/Phenol/Sorbitol 1 each 11/27/18 14:01 Cepastat Lozenge - MM Q4H PRN SORE THROAT Guaifenesin 10 ml 11/27/18 14:01 Robitussin - PO Q6H PRN COUGH Hydrochlorothiazide 25 mg 12/06/18 22:00 12/10/18 09:54 Hctz - PO 25 mg BID YG Administration Hydroxyzine Pamoate 25 mg 11/29/18 07:43 12/10/18 06:22 Vistaril - PO 25 mg Q6H PRN Administration FOR ITCHING Ibuprofen 600 mg 12/03/18 22:16 Motrin - PO Q6H PRN PAIN LEVEL 6-10 Loperamide HCl 4 mg 11/27/18 14:01 Imodium - PO Q6H PRN DIARRHEA Losartan Potassium 50 mg 11/28/18 10:00 12/10/18 09:53 Cozaar - PO 50 mg DAILY YG Administration Magnesium Citrate 300 ml 11/27/18 14:01 Citroma - PO Q48H PRN CONSTIPATION Magnesium Hydroxide 30 ml 11/27/18 14:01 12/07/18 21:57 Milk Of Magnesia - PO 30 ml DAILY PRN Administration CONSTIPATION Methadone HCl 40 mg 12/09/18 06:00 12/10/18 06:22 Dolophine - PO 40 mg DAILY@0600 YG Administration Multivit/Folic Acid/Iron 1 tab 11/28/18 10:00 12/10/18 09:53 Vitamins (Sjr) - PO 1 tab DAILY YG Administration Pseudoephedrine/Triprolidine 1 combo 11/27/18 14:01 Actifed - PO TID PRN NASAL CONGESTION Thiamine HCl 100 mg 11/27/18 22:00 12/09/18 21:50 Vitamin B1 - PO 100 mg HS YG Administration Triamcinolone Acetonide 1 applic 12/03/18 10:00 12/10/18 09:54 Aristocort 0.1% Cream - TP 1 applic BID YG Administration Medication(s) Change(s): Yes. Current Side Effect: No Lab tests ordered: No Lab tests reviewed: Yes Provider note:: Patient reports poor sleep despite accepting Belsomra 15mg HS. Will increase Belsomra to 20mg HS. Patient also informed on the importance of proper sleep hygiene. Benefits and side effects discussed. Verbal consent given. Total face to face time:: 20 Mental Status Exam - Mental Status Exam Alert and Oriented to: Time, Place, Person Cognitive Function: Good Patient Appearance: Well Groomed Mood: Euthymic Affect: Mood Congruent Patient Behavior: Appropriate, Cooperative Speech Pattern: Appropriate Voice Loudness: Normal Thought Process: Intact, Goal Oriented Thought Disorder: Not Present Hallucinations: Denies Suicidal Ideation: Denies Homicidal Ideation: Denies Insight/Judgement: Poor Sleep: Poorly Appetite: Fair Muscle strength/Tone: Normal Gait/Station: Normal Psychiatric Treatment Plan - Problem List (1) Alcohol dependence Current Visit: Yes (2) Substance induced mood disorder Current Visit: Yes (3) Substance-induced sleep disorder Current Visit: Yes (4) Depressive disorder Current Visit: Yes (5) Cocaine dependence Current Visit: No Qualifiers: Substance use status: uncomplicated Qualified Code(s): F14.20 - Cocaine dependence, uncomplicated (6) Nicotine dependence Current Visit: No Qualifiers: Nicotine product type: cigarettes Substance use status: in withdrawal Qualified Code(s): F17.213 - Nicotine dependence, cigarettes, with withdrawal (7) Opioid dependence on agonist therapy Current Visit: Yes
[2018-12-10] MEDS: THIAMINE HCL 100 MG TABLET (FP) PO SCH (22:24)
[2018-12-10] MEDS: SUVOREXANT 20 MG TABLET PO PRN (22:25)
[2018-12-11] MEDS: DOCUSATE SODIUM 100 MG CAPSULE (FP) PO SCH ×3 (06:22→21:25)
[2018-12-11] MEDS: METHADONE HCL 40 MG DISPERSABLE TABLET PO SCH (06:22)
[2018-12-11] MEDS: hydrOXYzine PAMOATE 25 MG CAPSULE (FP) PO PRN ×2 (06:22→21:28)
[2018-12-11] MEDS ORDERED: PT OWN MED DRAWER 7, Y5N ONE ×3 (07:33→08:30)
[2018-12-11] MEDS: AMOX TR/POT CLAV 250MG/125MG TABLETS PO SCH (07:37)
[2018-12-11] MEDS: HYDROCHLOROTHIAZIDE 25 MG TABLET (FP) PO SCH ×2 (10:24→21:24)
[2018-12-11] MEDS: TRIAMCINOLONE ACET 0.1% CREAM 15 GM TUBE TP SCH ×2 (10:24→21:44)
[2018-12-11] MEDS: BACITRACIN 15 GM TUBE TOPICAL OINTMENT TP SCH ×2 (10:24→21:44)
[2018-12-11] MEDS: PRENATAL VITAMINS W/ FOLIC ACID TABLET (FP) PO SCH (10:24)
[2018-12-11] MEDS: ASPIRIN 81 MG CHEWABLE TABLETS PO SCH (10:24)
[2018-12-11] MEDS: LOSARTAN POTASSIUM 50 MG TABLET (FP) PO SCH (10:24)
--- NOTE | 2018-12-11 13:55 | PN ---
S Progress Note (SOAP) Subjective: patient on Augmentin, treated empirically for suspected UTI, culture indicates no growth. Patient continues with itching and now c/o "pressure in her vagina" and feeling like she is "sitting on something hot." Denies sexual activity for > 1 year. Objective: Unable to examine. 12/11/18 13:54 Assessment: Vaginal infection. 12/11/18 13:54 Plan: metrogel ordered. Patient cannot use Diflucan because of interaction with Methadone and Vistaril.
[2018-12-11] MEDS: THIAMINE HCL 100 MG TABLET (FP) PO SCH (21:25)
[2018-12-11] MEDS: metroNIDAZOLE 0.75% VAGINAL GEL 70 GM TUBE VG SCH (21:25)
[2018-12-11] MEDS: SUVOREXANT 20 MG TABLET PO PRN (21:27)
[2018-12-12] MEDS: METHADONE HCL 40 MG DISPERSABLE TABLET PO SCH (06:07)
[2018-12-12] MEDS: DOCUSATE SODIUM 100 MG CAPSULE (FP) PO SCH ×3 (06:07→21:47)
[2018-12-12] MEDS ORDERED: PT OWN MED DRAWER 7, Y5N ONE ×2 (08:48→10:06)
[2018-12-12] MEDS: TRIAMCINOLONE ACET 0.1% CREAM 15 GM TUBE TP SCH ×2 (10:27→21:48)
[2018-12-12] MEDS: HYDROCHLOROTHIAZIDE 25 MG TABLET (FP) PO SCH ×2 (10:27→21:47)
[2018-12-12] MEDS: ASPIRIN 81 MG CHEWABLE TABLETS PO SCH (10:27)
[2018-12-12] MEDS: LOSARTAN POTASSIUM 50 MG TABLET (FP) PO SCH (10:28)
[2018-12-12] MEDS: PRENATAL VITAMINS W/ FOLIC ACID TABLET (FP) PO SCH (10:28)
[2018-12-12] MEDS: hydrOXYzine PAMOATE 25 MG CAPSULE (FP) PO PRN ×2 (10:29→19:40)
[2018-12-12] MEDS: BACITRACIN 15 GM TUBE TOPICAL OINTMENT TP SCH ×2 (11:00→21:47)
[2018-12-12] MEDS ORDERED: SODIUM PHOSPHATE/NA BIPHOS 133 ML ENEMA PR ONE (17:00)
[2018-12-12] MEDS: THIAMINE HCL 100 MG TABLET (FP) PO SCH (21:47)
[2018-12-12] MEDS: metroNIDAZOLE 0.75% VAGINAL GEL 70 GM TUBE VG SCH (21:49)
[2018-12-12] MEDS: SUVOREXANT 20 MG TABLET PO PRN (21:51)
[2018-12-13] MEDS: DOCUSATE SODIUM 100 MG CAPSULE (FP) PO SCH ×3 (06:35→22:14)
[2018-12-13] MEDS: hydrOXYzine PAMOATE 25 MG CAPSULE (FP) PO PRN (06:35)
[2018-12-13] MEDS: METHADONE HCL 40 MG DISPERSABLE TABLET PO SCH (06:35)
[2018-12-13] MEDS: ASPIRIN 81 MG CHEWABLE TABLETS PO SCH (09:41)
[2018-12-13] MEDS: HYDROCHLOROTHIAZIDE 25 MG TABLET (FP) PO SCH ×2 (09:41→22:14)
[2018-12-13] MEDS: PRENATAL VITAMINS W/ FOLIC ACID TABLET (FP) PO SCH (09:41)
[2018-12-13] MEDS: BACITRACIN 15 GM TUBE TOPICAL OINTMENT TP SCH ×2 (09:42→22:15)
[2018-12-13] MEDS: TRIAMCINOLONE ACET 0.1% CREAM 15 GM TUBE TP SCH ×2 (09:42→22:24)
[2018-12-13] MEDS: LOSARTAN POTASSIUM 50 MG TABLET (FP) PO SCH (09:42)
--- NOTE | 2018-12-13 17:51 | PN ---
[facility] Progress Note Note: Psychiatry Attending's note : Called for renewal of belsomra. Done. Met with patient. Side effects/benefits discussed. Sleep hygiene revisited. Belsomra 10 mg po prn. Renewed. Patient agrees.
[2018-12-13] MEDS: THIAMINE HCL 100 MG TABLET (FP) PO SCH (22:14)
[2018-12-13] MEDS: SUVOREXANT 10 MG TABLET PO PRN (22:14)
[2018-12-13] MEDS ORDERED: PT OWN MED DRAWER 7, Y5N ONE (22:26)
[2018-12-13] MEDS: metroNIDAZOLE 0.75% VAGINAL GEL 70 GM TUBE VG SCH (22:27)
[2018-12-14] MEDS: hydrOXYzine PAMOATE 25 MG CAPSULE (FP) PO PRN ×3 (06:02→22:42)
[2018-12-14] MEDS: METHADONE HCL 40 MG DISPERSABLE TABLET PO SCH (06:02)
[2018-12-14] MEDS: DOCUSATE SODIUM 100 MG CAPSULE (FP) PO SCH ×3 (06:02→21:35)
[2018-12-14] MEDS: TRIAMCINOLONE ACET 0.1% CREAM 15 GM TUBE TP SCH ×2 (09:53→21:35)
[2018-12-14] MEDS: ASPIRIN 81 MG CHEWABLE TABLETS PO SCH (09:54)
[2018-12-14] MEDS: PRENATAL VITAMINS W/ FOLIC ACID TABLET (FP) PO SCH (09:54)
[2018-12-14] MEDS: LOSARTAN POTASSIUM 50 MG TABLET (FP) PO SCH (09:54)
[2018-12-14] MEDS: HYDROCHLOROTHIAZIDE 25 MG TABLET (FP) PO SCH ×2 (09:54→21:35)
[2018-12-14] MEDS: BACITRACIN 15 GM TUBE TOPICAL OINTMENT TP SCH ×2 (09:55→21:35)
[2018-12-14] MEDS: THIAMINE HCL 100 MG TABLET (FP) PO SCH (21:35)
[2018-12-14] MEDS: metroNIDAZOLE 0.75% VAGINAL GEL 70 GM TUBE VG SCH (21:35)
[2018-12-14] MEDS: SUVOREXANT 10 MG TABLET PO PRN (21:37)
[2018-12-15] MEDS: METHADONE HCL 40 MG DISPERSABLE TABLET PO SCH (06:25)
[2018-12-15] MEDS: hydrOXYzine PAMOATE 25 MG CAPSULE (FP) PO PRN (06:26)
[2018-12-15] MEDS: DOCUSATE SODIUM 100 MG CAPSULE (FP) PO SCH ×3 (06:26→21:14)
[2018-12-15] MEDS: ASPIRIN 81 MG CHEWABLE TABLETS PO SCH (10:13)
[2018-12-15] MEDS: LOSARTAN POTASSIUM 50 MG TABLET (FP) PO SCH (10:13)
[2018-12-15] MEDS: PRENATAL VITAMINS W/ FOLIC ACID TABLET (FP) PO SCH (10:13)
[2018-12-15] MEDS: HYDROCHLOROTHIAZIDE 25 MG TABLET (FP) PO SCH ×2 (10:13→21:13)
[2018-12-15] MEDS: TRIAMCINOLONE ACET 0.1% CREAM 15 GM TUBE TP SCH ×2 (10:14→21:14)
[2018-12-15] MEDS: BACITRACIN 15 GM TUBE TOPICAL OINTMENT TP SCH ×2 (10:14→21:14)
--- NOTE | 2018-12-15 11:28 | PN ---
[facility] Progress Note (SOAP) Subjective: pt c/o shap pain rising up to left chest area after breakfast. Denies nausea, diarrhea or vomiting. Denies sob or dizziness. Oob ambulating with steady gait and socializing with peers. Pt reports she is drinking too much coffee. Objective: 12/15/18 11:25 Vital Signs 12/15/18 08:30 Temperature 98.1 F Pulse Rate 90 Respiratory 18 Rate Blood Pressure 131/77 Alert o x 3 nad cardiac:s1 s2 rrr lungs: no wheeze abdomen:nt,nd,+bs Assessment: 12/15/18 11:26 Dyspepsia Plan: D/w pt to increase po fluids preferably water instead of coffee. Mylanta was given with relief after 20 minutes of administration.
[2018-12-15] MEDS: THIAMINE HCL 100 MG TABLET (FP) PO SCH (21:13)
[2018-12-15] MEDS: SUVOREXANT 10 MG TABLET PO PRN (21:14)
[2018-12-15] MEDS: metroNIDAZOLE 0.75% VAGINAL GEL 70 GM TUBE VG SCH (21:15)
[2018-12-16] MEDS: DOCUSATE SODIUM 100 MG CAPSULE (FP) PO SCH ×3 (06:27→21:13)
[2018-12-16] MEDS: METHADONE HCL 40 MG DISPERSABLE TABLET PO SCH (06:27)
[2018-12-16] MEDS: hydrOXYzine PAMOATE 25 MG CAPSULE (FP) PO PRN ×3 (06:30→21:13)
[2018-12-16] MEDS ORDERED: PT OWN MED DRAWER 7, Y5N ONE (08:57)
[2018-12-16] MEDS: PRENATAL VITAMINS W/ FOLIC ACID TABLET (FP) PO SCH (09:05)
[2018-12-16] MEDS: HYDROCHLOROTHIAZIDE 25 MG TABLET (FP) PO SCH ×2 (09:05→21:13)
[2018-12-16] MEDS: LOSARTAN POTASSIUM 50 MG TABLET (FP) PO SCH (09:05)
[2018-12-16] MEDS: TRIAMCINOLONE ACET 0.1% CREAM 15 GM TUBE TP SCH ×2 (09:06→21:13)
[2018-12-16] MEDS: ASPIRIN 81 MG CHEWABLE TABLETS PO SCH (09:06)
[2018-12-16] MEDS: BACITRACIN 15 GM TUBE TOPICAL OINTMENT TP SCH ×2 (09:06→21:13)
--- NOTE | 2018-12-16 13:23 | PN ---
[facility] Progress Note Note: Psychiatric nurse practitioner note: Belsomra 10mg renewed X3 days. Verbal consent given.
[2018-12-16] MEDS: THIAMINE HCL 100 MG TABLET (FP) PO SCH (21:11)
[2018-12-16] MEDS: SUVOREXANT 10 MG TABLET PO PRN (21:12)
[2018-12-17] MEDS: METHADONE HCL 40 MG DISPERSABLE TABLET PO SCH (06:08)
[2018-12-17] MEDS: hydrOXYzine PAMOATE 25 MG CAPSULE (FP) PO PRN (06:09)
[2018-12-17] MEDS: DOCUSATE SODIUM 100 MG CAPSULE (FP) PO SCH ×3 (06:09→21:17)
[2018-12-17] MEDS: ASPIRIN 81 MG CHEWABLE TABLETS PO SCH (09:07)
[2018-12-17] MEDS: LOSARTAN POTASSIUM 50 MG TABLET (FP) PO SCH (09:07)
[2018-12-17] MEDS: PRENATAL VITAMINS W/ FOLIC ACID TABLET (FP) PO SCH (09:07)
[2018-12-17] MEDS: TRIAMCINOLONE ACET 0.1% CREAM 15 GM TUBE TP SCH ×2 (09:08→21:19)
[2018-12-17] MEDS: BACITRACIN 15 GM TUBE TOPICAL OINTMENT TP SCH ×2 (09:08→21:19)
[2018-12-17] MEDS: HYDROCHLOROTHIAZIDE 25 MG TABLET (FP) PO SCH ×2 (09:08→21:17)
[2018-12-17] MEDS: SELENIUM SULFIDE 2.5% LOTION 4 OZ. TP SCH (10:10)
[2018-12-17] MEDS: THIAMINE HCL 100 MG TABLET (FP) PO SCH (21:17)
[2018-12-17] MEDS: SUVOREXANT 10 MG TABLET PO PRN (21:18)
[2018-12-18] MEDS: METHADONE HCL 40 MG DISPERSABLE TABLET PO SCH (06:09)
[2018-12-18] MEDS: hydrOXYzine PAMOATE 25 MG CAPSULE (FP) PO PRN ×2 (06:10→21:04)
[2018-12-18] MEDS: DOCUSATE SODIUM 100 MG CAPSULE (FP) PO SCH ×3 (06:10→21:05)
[2018-12-18] MEDS ORDERED: PT OWN MED DRAWER 7, Y5N ONE (08:51)
[2018-12-18] MEDS: HYDROCHLOROTHIAZIDE 25 MG TABLET (FP) PO SCH ×2 (10:01→21:04)
[2018-12-18] MEDS: SELENIUM SULFIDE 2.5% LOTION 4 OZ. TP SCH (10:01)
[2018-12-18] MEDS: ASPIRIN 81 MG CHEWABLE TABLETS PO SCH (10:01)
[2018-12-18] MEDS: LOSARTAN POTASSIUM 50 MG TABLET (FP) PO SCH (10:01)
[2018-12-18] MEDS: PRENATAL VITAMINS W/ FOLIC ACID TABLET (FP) PO SCH (10:01)
[2018-12-18] MEDS: BACITRACIN 15 GM TUBE TOPICAL OINTMENT TP SCH ×2 (10:02→21:05)
[2018-12-18] MEDS: TRIAMCINOLONE ACET 0.1% CREAM 15 GM TUBE TP SCH ×2 (10:02→21:05)
[2018-12-18] MEDS: THIAMINE HCL 100 MG TABLET (FP) PO SCH (21:03)
[2018-12-18] MEDS: SUVOREXANT 10 MG TABLET PO PRN (21:05)
[2018-12-19] MEDS: METHADONE HCL 40 MG DISPERSABLE TABLET PO SCH (06:14)
[2018-12-19] MEDS: DOCUSATE SODIUM 100 MG CAPSULE (FP) PO SCH ×3 (06:15→21:55)
[2018-12-19] MEDS: hydrOXYzine PAMOATE 25 MG CAPSULE (FP) PO PRN ×2 (06:15→13:46)
[2018-12-19] MEDS: PRENATAL VITAMINS W/ FOLIC ACID TABLET (FP) PO SCH (09:02)
[2018-12-19] MEDS: HYDROCHLOROTHIAZIDE 25 MG TABLET (FP) PO SCH ×2 (09:02→21:55)
[2018-12-19] MEDS: LOSARTAN POTASSIUM 50 MG TABLET (FP) PO SCH (09:02)
[2018-12-19] MEDS: ASPIRIN 81 MG CHEWABLE TABLETS PO SCH (09:02)
[2018-12-19] MEDS: TRIAMCINOLONE ACET 0.1% CREAM 15 GM TUBE TP SCH ×2 (09:03→21:53)
[2018-12-19] MEDS: SELENIUM SULFIDE 2.5% LOTION 4 OZ. TP SCH (09:03)
[2018-12-19] MEDS: BACITRACIN 15 GM TUBE TOPICAL OINTMENT TP SCH ×2 (09:04→21:54)
--- NOTE | 2018-12-19 13:01 | PN ---
Psychiatric Progress Note Vital Signs: Vital Signs Period Temp Pulse Resp BP Sys/Reina Pulse Ox Last 24 Hr 98.0 F 80-86 - 157-165/77-87 Date of Session: 12/19/18 Chief Complaint:: "i'm having trouble sleeping." HPI: Patient admitted to [facility] for inpatient rehab for alcohol, opioid and cocaine. Patient reports sleeping poorly. ROS: Patient is coherent, alert + oriented X3. Current Medications: Active Medications Generic Name Dose Route Start Last Admin Trade Name Freq PRN Reason Stop Dose Admin Acetaminophen 650 mg 11/27/18 14:01 11/28/18 09:24 Tylenol - PO 650 mg Q4H PRN Administration FEVER Al Hydroxide/Mg Hydroxide 30 ml 11/27/18 14:01 12/15/18 08:35 Mylanta Oral Suspension - PO 30 ml Q6H PRN Administration DYSPEPSIA Aspirin 81 mg 11/28/18 10:00 12/19/18 09:02 Asa - PO 81 mg DAILY YG Administration Bacitracin 1 applic 11/27/18 22:00 12/19/18 09:04 Bacitracin - TP Not Given BID YG Benzocaine 1 applic 12/03/18 22:15 Anbesol - MM Q6H PRN FOR TOOTHACHE Colloidal Oatmeal 1 applic 12/03/18 09:11 12/13/18 09:41 Aveeno Soap - TP 1 bar DAILY PRN Administration HYGEINE Docusate Sodium 100 mg 12/01/18 14:00 12/19/18 06:15 Colace - PO 100 mg TID YG Administration Eucalyptus/Menthol/Phenol/Sorbitol 1 each 11/27/18 14:01 Cepastat Lozenge - MM Q4H PRN SORE THROAT Guaifenesin 10 ml 11/27/18 14:01 Robitussin - PO Q6H PRN COUGH Hydrochlorothiazide 25 mg 12/06/18 22:00 12/19/18 09:02 Hctz - PO 25 mg BID YG Administration Hydroxyzine Pamoate 25 mg 11/29/18 07:43 12/19/18 06:15 Vistaril - PO 25 mg Q6H PRN Administration FOR ITCHING Ibuprofen 600 mg 12/03/18 22:16 12/16/18 09:04 Motrin - PO 600 mg Q6H PRN Administration PAIN LEVEL 6-10 Loperamide HCl 4 mg 11/27/18 14:01 Imodium - PO Q6H PRN DIARRHEA Losartan Potassium 50 mg 11/28/18 10:00 12/19/18 09:02 Cozaar - PO 50 mg DAILY YG Administration Magnesium Citrate 300 ml 11/27/18 14:01 12/12/18 15:25 Citroma - PO 300 ml Q48H PRN Administration CONSTIPATION Magnesium Hydroxide 30 ml 11/27/18 14:01 12/07/18 21:57 Milk Of Magnesia - PO 30 ml DAILY PRN Administration CONSTIPATION Methadone HCl 40 mg 12/16/18 06:00 12/19/18 06:14 Dolophine - PO 12/22/18 05:59 40 mg DAILY@0600 YG Administration Multivit/Folic Acid/Iron 1 tab 11/28/18 10:00 12/19/18 09:02 Vitamins (Sjr) - PO 1 tab DAILY YG Administration Pseudoephedrine/Triprolidine 1 combo 11/27/18 14:01 Actifed - PO TID PRN NASAL CONGESTION Selenium Sulfide 1 applic 12/17/18 10:00 12/19/18 09:03 Selsun 2.5% Lotion - TP 12/24/18 09:08 1 applic DAILY YG Administration Suvorexant 10 mg 12/16/18 22:00 12/18/18 21:05 Belsomra PO 10 mg HS PRN Administration INSOMNIA Thiamine HCl 100 mg 11/27/18 22:00 12/18/18 21:03 Vitamin B1 - PO 100 mg HS YG Administration Triamcinolone Acetonide 1 applic 12/03/18 10:00 12/19/18 09:03 Aristocort 0.1% Cream - TP 1 applic BID YG Administration Medication(s) Change(s): Yes. Current Side Effect: No Lab tests ordered: No Lab tests reviewed: Yes Provider note:: Patient reports difficulty sleeping despite accepting belsroma 10mg HS. Will d/c belsomra 10mg HS and will order Belsomra 15mg HS. Patient also educated on importance of proper sleep hygiene. Patient satisifed and receptive to feedback. Benefits and side effects discussed. Verbal consent given. Total face to face time:: 20 Mental Status Exam - Mental Status Exam Alert and Oriented to: Time, Place, Person Cognitive Function: Good Patient Appearance: Well Groomed Mood: Euthymic Affect: Appropriate Patient Behavior: Cooperative Speech Pattern: Appropriate Voice Loudness: Normal Thought Process: Goal Oriented Thought Disorder: Not Present Hallucinations: Denies Suicidal Ideation: Denies Homicidal Ideation: Denies Insight/Judgement: Poor Sleep: Poorly Appetite: Fair Muscle strength/Tone: Normal Gait/Station: Normal Psychiatric Treatment Plan - Problem List (1) Alcohol dependence Current Visit: Yes (2) Substance induced mood disorder Current Visit: Yes (3) Substance-induced sleep disorder Current Visit: Yes (4) Depressive disorder Current Visit: Yes (5) Cocaine dependence Current Visit: No Qualifiers: Substance use status: uncomplicated Qualified Code(s): F14.20 - Cocaine dependence, uncomplicated (6) Nicotine dependence Current Visit: No Qualifiers: Nicotine product type: cigarettes Substance use status: in withdrawal Qualified Code(s): F17.213 - Nicotine dependence, cigarettes, with withdrawal (7) Opioid dependence on agonist therapy Current Visit: Yes
[2018-12-19] MEDS ORDERED: PT OWN MED DRAWER 7, Y5N ONE (20:22)
[2018-12-19] MEDS: THIAMINE HCL 100 MG TABLET (FP) PO SCH (21:55)
[2018-12-19] MEDS: SUVOREXANT 15 MG TABLET PO PRN (21:55)
[2018-12-20] MEDS: DOCUSATE SODIUM 100 MG CAPSULE (FP) PO SCH ×3 (06:40→21:25)
[2018-12-20] MEDS: METHADONE HCL 40 MG DISPERSABLE TABLET PO SCH (06:40)
[2018-12-20] MEDS: BACITRACIN 15 GM TUBE TOPICAL OINTMENT TP SCH ×2 (10:24→21:26)
[2018-12-20] MEDS: hydrOXYzine PAMOATE 25 MG CAPSULE (FP) PO PRN ×2 (10:24→21:27)
[2018-12-20] MEDS: ASPIRIN 81 MG CHEWABLE TABLETS PO SCH (10:24)
[2018-12-20] MEDS: TRIAMCINOLONE ACET 0.1% CREAM 15 GM TUBE TP SCH ×2 (10:24→21:26)
[2018-12-20] MEDS: HYDROCHLOROTHIAZIDE 25 MG TABLET (FP) PO SCH ×2 (10:24→21:25)
[2018-12-20] MEDS: PRENATAL VITAMINS W/ FOLIC ACID TABLET (FP) PO SCH (10:24)
[2018-12-20] MEDS: LOSARTAN POTASSIUM 50 MG TABLET (FP) PO SCH (10:24)
[2018-12-20] MEDS: SELENIUM SULFIDE 2.5% LOTION 4 OZ. TP SCH (10:25)
[2018-12-20] MEDS: THIAMINE HCL 100 MG TABLET (FP) PO SCH (21:25)
[2018-12-20] MEDS: SUVOREXANT 15 MG TABLET PO PRN (21:26)
[2018-12-21] MEDS: DOCUSATE SODIUM 100 MG CAPSULE (FP) PO SCH ×3 (06:39→21:08)
[2018-12-21] MEDS: METHADONE HCL 40 MG DISPERSABLE TABLET PO SCH (06:39)
[2018-12-21] MEDS: TRIAMCINOLONE ACET 0.1% CREAM 15 GM TUBE TP SCH ×2 (10:11→21:09)
[2018-12-21] MEDS: SELENIUM SULFIDE 2.5% LOTION 4 OZ. TP SCH (10:11)
[2018-12-21] MEDS: ASPIRIN 81 MG CHEWABLE TABLETS PO SCH (10:13)
[2018-12-21] MEDS: PRENATAL VITAMINS W/ FOLIC ACID TABLET (FP) PO SCH (10:13)
[2018-12-21] MEDS: LOSARTAN POTASSIUM 50 MG TABLET (FP) PO SCH (10:13)
[2018-12-21] MEDS: HYDROCHLOROTHIAZIDE 25 MG TABLET (FP) PO SCH ×2 (10:13→21:08)
[2018-12-21] MEDS: hydrOXYzine PAMOATE 25 MG CAPSULE (FP) PO PRN ×2 (10:13→21:08)
[2018-12-21] MEDS: BACITRACIN 15 GM TUBE TOPICAL OINTMENT TP SCH ×2 (10:13→21:09)
[2018-12-21] MEDS ORDERED: PT OWN MED DRAWER 7, Y5N ONE (21:07)
[2018-12-21] MEDS: THIAMINE HCL 100 MG TABLET (FP) PO SCH (21:08)
[2018-12-21] MEDS: SUVOREXANT 15 MG TABLET PO PRN (21:09)
[2018-12-22] MEDS: DOCUSATE SODIUM 100 MG CAPSULE (FP) PO SCH ×3 (06:32→21:44)
[2018-12-22] MEDS: METHADONE HCL 40 MG DISPERSABLE TABLET PO SCH (06:32)
[2018-12-22] MEDS: TRIAMCINOLONE ACET 0.1% CREAM 15 GM TUBE TP SCH ×2 (10:03→21:45)
[2018-12-22] MEDS: ASPIRIN 81 MG CHEWABLE TABLETS PO SCH (10:03)
[2018-12-22] MEDS: LOSARTAN POTASSIUM 50 MG TABLET (FP) PO SCH (10:03)
[2018-12-22] MEDS: PRENATAL VITAMINS W/ FOLIC ACID TABLET (FP) PO SCH (10:03)
[2018-12-22] MEDS: SELENIUM SULFIDE 2.5% LOTION 4 OZ. TP SCH (10:03)
[2018-12-22] MEDS: HYDROCHLOROTHIAZIDE 25 MG TABLET (FP) PO SCH ×2 (10:03→21:44)
[2018-12-22] MEDS: BACITRACIN 15 GM TUBE TOPICAL OINTMENT TP SCH ×2 (10:04→21:44)
[2018-12-22] MEDS: hydrOXYzine PAMOATE 25 MG CAPSULE (FP) PO PRN ×2 (10:05→21:44)
[2018-12-22] MEDS: THIAMINE HCL 100 MG TABLET (FP) PO SCH (21:44)
[2018-12-23] MEDS: METHADONE HCL 40 MG DISPERSABLE TABLET PO SCH (06:09)
[2018-12-23] MEDS: DOCUSATE SODIUM 100 MG CAPSULE (FP) PO SCH ×3 (06:10→21:43)
[2018-12-23] MEDS: hydrOXYzine PAMOATE 25 MG CAPSULE (FP) PO PRN ×2 (06:10→21:45)
[2018-12-23] MEDS: TRIAMCINOLONE ACET 0.1% CREAM 15 GM TUBE TP SCH ×2 (10:08→21:44)
[2018-12-23] MEDS: SELENIUM SULFIDE 2.5% LOTION 4 OZ. TP SCH (10:08)
[2018-12-23] MEDS: HYDROCHLOROTHIAZIDE 25 MG TABLET (FP) PO SCH ×2 (10:09→21:43)
[2018-12-23] MEDS: PRENATAL VITAMINS W/ FOLIC ACID TABLET (FP) PO SCH (10:09)
[2018-12-23] MEDS: ASPIRIN 81 MG CHEWABLE TABLETS PO SCH (10:09)
[2018-12-23] MEDS: LOSARTAN POTASSIUM 50 MG TABLET (FP) PO SCH (10:09)
[2018-12-23] MEDS: BACITRACIN 15 GM TUBE TOPICAL OINTMENT TP SCH ×2 (10:10→21:44)
[2018-12-23 15:09] LABS: EPI CELLS 0.8 /HPF (0-5/HPF); HYALINE CASTS 1 /lpf (0-8); URINE APPEARANCE CLEAR; URINE BACTERIA 1.4 /hpf (NEGATIVE); URINE BILIRUBIN NEGATIVE (NEGATIVE); URINE COLOR YELLOW; URINE GLUCOSE (UA) NEGATIVE (NEGATIVE); URINE KETONE NEGATIVE (NEGATIVE); URINE LEUK ESTERASE TRACE (NEGATIVE); URINE NITRITE NEGATIVE (NEGATIVE); URINE PROTEIN NEGATIVE (NEGATIVE); URINE RBC 5 /hpf (0-4); URINE UROBILINOGEN 0.2 mg/dL (0.2-1.0); URINE WBC 2 /hpf (0-5)
[2018-12-23 15:19] LABS: ALBUMIN 3.7 g/dl (3.4-5.0); BILIRUBIN,TOTAL 0.5 mg/dL (0.2-1); BLOOD UREA NITROGEN 25.5 mg/dL (7-18); CALCIUM 9.3 mg/dL (8.5-10.1); CREATININE 0.7 mg/dL (0.55-1.3); POTASSIUM 3.6 mmol/L (3.5-5.1); TOT PROT 7.6 g/dl (6.4-8.2)
[2018-12-23] MEDS ORDERED: PT OWN MED DRAWER 7, Y5N ONE (19:44)
[2018-12-23] MEDS: THIAMINE HCL 100 MG TABLET (FP) PO SCH (21:43)
[2018-12-23] MEDS: SUVOREXANT 15 MG TABLET PO PRN (21:47)
[2018-12-24] MEDS: hydrOXYzine PAMOATE 25 MG CAPSULE (FP) PO PRN (06:20)
[2018-12-24] MEDS: DOCUSATE SODIUM 100 MG CAPSULE (FP) PO SCH ×3 (06:20→21:34)
[2018-12-24] MEDS: METHADONE HCL 40 MG DISPERSABLE TABLET PO SCH (06:20)
[2018-12-24] MEDS: LOSARTAN POTASSIUM 50 MG TABLET (FP) PO SCH (09:59)
[2018-12-24] MEDS: TRIAMCINOLONE ACET 0.1% CREAM 15 GM TUBE TP SCH ×2 (09:59→21:37)
[2018-12-24] MEDS: ASPIRIN 81 MG CHEWABLE TABLETS PO SCH (09:59)
[2018-12-24] MEDS: HYDROCHLOROTHIAZIDE 25 MG TABLET (FP) PO SCH ×2 (09:59→21:34)
[2018-12-24] MEDS: PRENATAL VITAMINS W/ FOLIC ACID TABLET (FP) PO SCH (09:59)
[2018-12-24] MEDS: BACITRACIN 15 GM TUBE TOPICAL OINTMENT TP SCH ×2 (09:59→21:36)
--- NOTE | 2018-12-24 11:11 | DS ---
[facility] Rehab Discharge Summary - [facility] Rehab Discharge Summary Admission Date: 11/27/18 Discharge Date: 12/25/18 - History Present History: Alcohol dependence, Cocaine dependence, MMTP, Opioid dependence Additional Comments: Pt is a 63 y/o female admitted to rehab after detox on and scheduled to discharge on 12/25/18 after completion of rehab treatment. Pertinent Past History: HTN Hx Lung Cancer s/p right upper lobectomy s/p cholecystectomy - Discharge Physical Exam Vital Signs: Vital Signs Temperature 97.5 F L 12/24/18 07:17 Pulse Rate 83 12/24/18 09:37 Respiratory Rate 18 12/24/18 07:17 Blood Pressure 157/76 12/24/18 09:37 O2 Sat by Pulse Oximetry (%) General:Alert o x 3,nad,oob ambulating with steady gait Cardiac:s1 s2,rrr lungs:cta,jocelin. abdomen:soft,+bs,nt,nd extremities/skin:no edema,full ROM,skin intact. Pertinent Admission Physical Exam Findings: Laboratory Tests 12/23/18 12/23/18 12/23/18 08:20 08:20 13:00 Sodium 138 Potassium 3.6 Chloride 101 Carbon Dioxide 34 H Anion Gap 3 L BUN 25.5 H Creatinine 0.7 Est GFR (CKD-EPI)AfAm 105.38 Est GFR (CKD-EPI)NonAf 90.92 Random Glucose 110 H Calcium 9.3 Total Bilirubin 0.5 AST 80 H ALT 128 H Alkaline Phosphatase 177 H Total Protein 7.6 Albumin 3.7 Urine Color Yellow Urine Appearance Clear Urine pH 7.0 Ur Specific Buena 1.022 Urine Protein Negative Urine Glucose (UA) Negative Urine Ketones Negative Urine Blood Negative Urine Nitrite Negative Urine Bilirubin Negative Urine Urobilinogen 0.2 Ur Leukocyte Esterase Trace Urine WBC (Auto) 2 Urine RBC (Auto) 5 Urine Casts (Auto) 1 U Epithel Cells (Auto) 0.8 Urine Bacteria (Auto) 1.4 Hep C Ab Diagnostic <0.1 - Treatment Discharge Condition: Discharge condition good Hospital Course: Rehabilitated safely and responded well. CD aftercare referral accepted. - Medication Discharge Medications: Ambulatory Orders Aspirin 1 tab PO DAILY #14 tab.chew 12/24/18 Losartan Potassium [Cozaar -] 50 mg PO DAILY #14 tablet 12/24/18 - Medication-Assisted Treatment (MAT) Medication-Assisted Treatment (MAT): No - Discharge Instructions Diet, activity, other medical instructions: Diet:DANELLE Activity: oob ad katiuska Other medical instructions:follow up with primary care doctor(pt does not remember name) at [facility] within 1-2 weeks after discharge. follow up with [facility]-MMTP/CD aftercare recommendation as scheduled. - Diagnosis (1) Alcohol dependence Status: Chronic Qualifiers: Substance use status: uncomplicated Qualified Code(s): F10.20 - Alcohol dependence, uncomplicated (2) Cocaine dependence Status: Chronic Qualifiers: Substance use status: uncomplicated Qualified Code(s): F14.20 - Cocaine dependence, uncomplicated (3) Hypertension Status: Chronic Qualifiers: Hypertension type: essential hypertension Qualified Code(s): I10 - Essential (primary) hypertension (4) Methadone maintenance therapy patient Status: Chronic (5) Nicotine dependence Status: Chronic Qualifiers: Nicotine product type: cigarettes Substance use status: in withdrawal Qualified Code(s): F17.213 - Nicotine dependence, cigarettes, with withdrawal - Follow-up Referral Minutes to complete discharge: 25 - AMA Did Patient Leave Against Medical Advice: No Additional Comments: 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 reminded pt to follow up with primary care provider for further medical management.
[2018-12-24] MEDS ORDERED: PT OWN MED DRAWER 7, Y5N ONE (13:31)
[2018-12-24] MEDS: THIAMINE HCL 100 MG TABLET (FP) PO SCH (21:34)
[2018-12-24] MEDS: SUVOREXANT 15 MG TABLET PO PRN (21:36)
[2018-12-25] MEDS: METHADONE HCL 40 MG DISPERSABLE TABLET PO SCH (06:16)
[2018-12-25] MEDS: hydrOXYzine PAMOATE 25 MG CAPSULE (FP) PO PRN (06:17)
[2018-12-25] MEDS: DOCUSATE SODIUM 100 MG CAPSULE (FP) PO SCH (06:17)
[2018-12-25 07:18] VITALS: BP 153/90; PULSE 84; TEMP 98.2
[2018-12-25] MEDS: ASPIRIN 81 MG CHEWABLE TABLETS PO SCH (09:00)
[2018-12-25] MEDS: LOSARTAN POTASSIUM 50 MG TABLET (FP) PO SCH (09:00)
[2018-12-25] MEDS: BACITRACIN 15 GM TUBE TOPICAL OINTMENT TP SCH (09:00)
[2018-12-25] MEDS: PRENATAL VITAMINS W/ FOLIC ACID TABLET (FP) PO SCH (09:00)
[2018-12-25] MEDS: HYDROCHLOROTHIAZIDE 25 MG TABLET (FP) PO SCH (09:00)
[2018-12-25] MEDS: TRIAMCINOLONE ACET 0.1% CREAM 15 GM TUBE TP SCH (09:00)
--- NOTE | 2018-12-25 09:59 | PN ---
S Progress Note Note: Ms Naranjo was discharged today in stable condition as scheduled. Reminded to follow up with all treatment referral recommendations as scheduled. Vital Signs - 24 hr 12/24/18 12/25/18 12/25/18 20:40 00:30 03:30 Temperature Pulse Rate 81 Respiratory 16 16 Rate Blood Pressure 165/73 12/25/18 07:17 Temperature 98.2 F Pulse Rate 84 Respiratory 18 Rate Blood Pressure 153/90 A/P Discharged stable Pt agreeable with poc.
== END 2018-12-25 09:08 | disposition home or self-care (01) | DRG 895 ==
LOC: YASAS 12:12 → Y3E 12:15
PROVIDERS: ADMIT Neuromusculoskeletal Medicine & OMM; ATTEND Neuromusculoskeletal Medicine & OMM
PROC: HZ42ZZZ Group Counseling for Substance Abuse Treatment, Cognitive-Behavioral (ICD-10-PCS; principal; 2018-11-27)
DX: F10.20 Alcohol dependence, uncomplicated (principal); F11.20 Opioid dependence, uncomplicated; F14.20 Cocaine dependence, uncomplicated; F19.282 Other psychoactive substance dependence with psychoactive substance-induced sleep disorder; N39.0 Urinary tract infection, site not specified; F17.213 Nicotine dependence, cigarettes, with withdrawal; F19.24 Other psychoactive substance dependence with psychoactive substance-induced mood disorder; F32.9 Major depressive disorder, single episode, unspecified; I10 Essential (primary) hypertension; J43.9 Emphysema, unspecified; R10.13 Epigastric pain; K08.89 Other specified disorders of teeth and supporting structures; R21 Rash and other nonspecific skin eruption; L29.9 Pruritus, unspecified; Z85.118 Personal history of other malignant neoplasm of bronchus and lung; Z90.2 Acquired absence of lung [part of]; Z91.14 Patient's other noncompliance with medication regimen
CPT/HCPCS: 36415; 80053; 81003; 86803; 87086; J0735

== ENCOUNTER 2022-01-24 09:36 | Inpatient (IN) | payer OTHER ==
[2022-01-24 10:46] VITALS: BMI 20.2
[2022-01-24] MEDS ORDERED: BISMUTH SUBSALICYLATE 262 MG/15 ML BTL PO PRN (11:06)
[2022-01-24] MEDS ORDERED: NICOTINE 10 MG CARTRIDGE (INHALER) IH PRN (11:06)
[2022-01-24] MEDS ORDERED: NALOXONE HCL (KLOXXADO) 8 MG SPRAY NS PRN (11:06)
[2022-01-24] MEDS ORDERED: ACETAMINOPHEN 325 MG TABLET (FP) PO PRN ×2 (11:06)
[2022-01-24] MEDS ORDERED: MAG HYDROX/AL HYDROX/SIMETH 30 ML UNIT-DOSE CUP PO PRN (11:06)
[2022-01-24] MEDS ORDERED: ONDANSETRON *ODT* 4 MG TABLET SL PRN (11:06)
[2022-01-24] MEDS ORDERED: IBUPROFEN 600 MG TABLET (FP) PO PRN (11:06)
[2022-01-24] MEDS ORDERED: POLYETHYLENE GLYCOL (HEALTHYLAX) 3350 17 GM PACKET PO PRN (11:06)
[2022-01-24] MEDS ORDERED: NICOTINE POLACRILEX 2 MG GUM BUC PRN (11:06)
[2022-01-24] MEDS ORDERED: DICYCLOMINE HCL 10 MG CAPSULE PO PRN (11:06)
[2022-01-24] MEDS ORDERED: NICOTINE 7 MG/24 HOURS TOPICAL PATCH TD PRN (11:06)
[2022-01-24] MEDS ORDERED: MAGNESIUM HYDROX 2400MG/30ML ORAL SUSPENSION 30 ML CUP PO PRN (11:06)
[2022-01-24] MEDS ORDERED: hydrOXYzine PAMOATE 25 MG CAPSULE (FP) PO PRN (11:06)
[2022-01-24] MEDS ORDERED: IBUPROFEN 400 MG TABLET (FP) PO PRN (11:06)
[2022-01-24] MEDS ORDERED: LOPERAMIDE HCL 2 MG CAPSULE PO PRN (11:06)
[2022-01-24] MEDS ORDERED: BENZOCAINE/MENTHOL (CHLORASEPTIC ) LOZENGE MM PRN (11:06)
[2022-01-24] MEDS ORDERED: METHOCARBAMOL 500 MG TABLET ONE (11:41)
[2022-01-24] MEDS: METHOCARBAMOL 500 MG TABLET PO PRN ×2 (11:44→17:24)
[2022-01-24] MEDS: LOSARTAN POTASSIUM 50 MG TABLET PO SCH (12:01)
[2022-01-24] MEDS: hydrOXYzine PAMOATE 25 MG CAPSULE (FP) PO PRN (13:34)
[2022-01-24] MEDS ORDERED: methaDONE HCL 10 MG TABLET (FOR DETOX USE ONLY) PO ONE (14:30)
[2022-01-24] MEDS: cloNIDine HCL 0.1 MG TABLET PO PRN (17:23)
[2022-01-24] MEDS: THIAMINE HCL 100 MG TABLET (FP) PO SCH (22:17)
[2022-01-24] MEDS: MELATONIN 5 MG TABLETS PO SCH (22:17)
[2022-01-25] MEDS: METHOCARBAMOL 500 MG TABLET PO PRN ×2 (05:54→18:11)
[2022-01-25] MEDS: hydrOXYzine PAMOATE 25 MG CAPSULE (FP) PO PRN (05:55)
[2022-01-25] MEDS: cloNIDine HCL 0.1 MG TABLET PO PRN ×2 (05:55→13:17)
[2022-01-25 10:21] LABS: HEMATOCRIT 36.4 % (32.4-45.2); HEMOGLOBIN 11.9 GM/dL (10.7-15.3); MCH 29.7 pg (25.7-33.7); MCHC 32.8 g/dl (32.0-36.0); MEAN CELL VOLUME 90.6 fl (80-96); MEAN PLT VOLUME 8.4 fl (7.5-11.1); PLATELET COUNT 293 10^3/uL (134-434); RBC 4.01 M/mm3 (3.60-5.2); RDW 13.1 % (11.6-15.6); WHITE BLOOD COUNT 6.3 K/mm3 (4.0-10.0)
[2022-01-25 10:39] LABS: CALCIUM 8.9 mg/dL (8.5-10.1)
[2022-01-25 10:40] LABS: BLOOD UREA NITROGEN 21.8 mg/dL (7-18)
[2022-01-25 10:41] LABS: CREATININE 0.7 mg/dL (0.55-1.3)
[2022-01-25 10:42] LABS: BILIRUBIN,TOTAL 0.4 mg/dL (0.2-1); TOT PROT 6.7 g/dl (6.4-8.2)
[2022-01-25] MEDS: LOSARTAN POTASSIUM 50 MG TABLET PO SCH (10:43)
[2022-01-25] MEDS: PRENATAL VITAMINS W/ FOLIC ACID TABLET (FP) PO SCH (10:43)
[2022-01-25] MEDS: hydrOXYzine PAMOATE 50 MG CAPSULE (FP) PO PRN (22:35)
[2022-01-25] MEDS: THIAMINE HCL 100 MG TABLET (FP) PO SCH (22:35)
[2022-01-25] MEDS: MELATONIN 5 MG TABLETS PO SCH (22:36)
[2022-01-26] MEDS: cloNIDine HCL 0.1 MG TABLET PO PRN (00:46)
[2022-01-26 09:26] VITALS: BP 141/73; PULSE 81; RESP 16; TEMP 97.7
[2022-01-26] MEDS: hydrOXYzine PAMOATE 50 MG CAPSULE (FP) PO PRN (09:52)
[2022-01-26] MEDS: LOSARTAN POTASSIUM 50 MG TABLET PO SCH (09:52)
[2022-01-26] MEDS: PRENATAL VITAMINS W/ FOLIC ACID TABLET (FP) PO SCH (09:55)
[2022-01-26] MEDS ORDERED: methaDONE HCL 10 MG TABLET (FOR DETOX USE ONLY) PO ONE (10:00)
[2022-01-26] MEDS ORDERED: NALOXONE (NARCAN) HCL 4 MG/0.1 ML SPRAY NS ONE (10:15)
[2022-01-26] MEDS ORDERED: NALOXONE HCL (KLOXXADO) 8 MG SPRAY NS ONE (10:15)
[2022-01-28] MEDS ORDERED: methaDONE HCL 10 MG TABLET (FOR DETOX USE ONLY) PO ONE (10:00)
== END 2022-01-26 10:20 | disposition left against medical advice (07) | DRG 894 ==
LOC: YASAS 09:36 → Y6N 11:42
PROVIDERS: ADMIT Allergy & Immunology; ATTEND Surgery
PROC: HZ2ZZZZ Detoxification Services for Substance Abuse Treatment (ICD-10-PCS; principal; 2022-01-24)
DX: F11.23 Opioid dependence with withdrawal (principal); U07.1 COVID-19; F14.20 Cocaine dependence, uncomplicated; F19.282 Other psychoactive substance dependence with psychoactive substance-induced sleep disorder; F17.210 Nicotine dependence, cigarettes, uncomplicated; F32.A Depression, unspecified; F19.24 Other psychoactive substance dependence with psychoactive substance-induced mood disorder; I10 Essential (primary) hypertension; J43.9 Emphysema, unspecified; R63.4 Abnormal weight loss; Z68.20 Body mass index [BMI] 20.0-20.9, adult; Z90.2 Acquired absence of lung [part of]; Z56.0 Unemployment, unspecified
CPT/HCPCS: 36415; 80053; 82140; 85027; 86780; 86803; 93005; 93010; C9803-CS; U0003; U0005

== ENCOUNTER 2023-11-26 10:40 | Inpatient (IN) | payer OTHER ==
[2023-11-26] MEDS ORDERED: IBUPROFEN 400 MG TABLET (FP) PO PRN (11:23)
[2023-11-26] MEDS ORDERED: LOPERAMIDE HCL 2 MG CAPSULE PO PRN (11:23)
[2023-11-26] MEDS ORDERED: BENZONATATE 200 MG CAPSULE PO PRN (11:23)
[2023-11-26] MEDS ORDERED: guaiFENesin 600 MG TABLET.ER (FP) PO PRN (11:23)
[2023-11-26] MEDS ORDERED: NALOXONE (NARCAN) HCL 4 MG/0.1 ML SPRAY NS PRN (11:23)
[2023-11-26] MEDS ORDERED: MAG HYDROX/AL HYDROX/SIMETH 30 ML UNIT-DOSE CUP PO PRN (11:23)
[2023-11-26] MEDS ORDERED: MAGNESIUM HYDROX 2400MG/30ML ORAL SUSPENSION 30 ML CUP PO PRN (11:23)
[2023-11-26] MEDS ORDERED: POLYETHYLENE GLYCOL (HEALTHYLAX) 3350 17 GM PACKET PO PRN (11:23)
[2023-11-26] MEDS ORDERED: BENZOCAINE/MENTHOL (CHLORASEPTIC ) LOZENGE MM PRN (11:23)
[2023-11-26] MEDS ORDERED: NICOTINE 7 MG/24 HOURS TOPICAL PATCH TD ONE (12:28)
[2023-11-26] MEDS ORDERED: IBUPROFEN 600 MG TABLET (FP) PO ONE (12:28)
[2023-11-26 12:29] VITALS: BMI 19.8
[2023-11-26] MEDS: IBUPROFEN 600 MG TABLET (FP) PO PRN (12:30)
[2023-11-26] MEDS: NICOTINE 7 MG/24 HOURS TOPICAL PATCH TD SCH (12:33)
[2023-11-26] MEDS: MELATONIN 5 MG TABLETS PO SCH (22:05)
[2023-11-26] MEDS: THIAMINE 100 MG TABLET PO SCH (22:05)
[2023-11-27] MEDS: methaDONE 40 MG, methaDONE 10 MG PO SCH (05:39)
[2023-11-27] MEDS ORDERED: methaDONE HCL 10 MG TABLET PO SCH (06:00)
[2023-11-27] MEDS: ACETAMINOPHEN 325 MG TABLET (FP) PO PRN (08:42)
[2023-11-27] MEDS: BACLOFEN 10 MG TABLET (FP) PO ONE (09:12)
[2023-11-27] MEDS: PRENATAL VITAMINS W/ FOLIC ACID TABLET (FP) PO SCH (09:13)
[2023-11-27] MEDS: LOSARTAN POTASSIUM 25 MG TABLET PO SCH (09:13)
[2023-11-27 11:32] LABS: POTASSIUM 3.8 mmol/L (3.5-5.1)
[2023-11-27 11:33] LABS: URINE APPEARANCE CLEAR; URINE BILIRUBIN NEGATIVE (NEGATIVE); URINE COLOR YELLOW; URINE GLUCOSE (UA) NEGATIVE (NEGATIVE); URINE KETONE TRACE (NEGATIVE); URINE LEUK ESTERASE NEGATIVE (NEGATIVE); URINE NITRITE NEGATIVE (NEGATIVE); URINE PROTEIN NEGATIVE (NEGATIVE); URINE UROBILINOGEN 0.2 mg/dL (0.2-1.0)
[2023-11-27 11:36] LABS: HEMATOCRIT 35.1 % (32.4-45.2); MCHC 34.3 g/dl (32.0-36.0); MEAN CELL VOLUME 90.6 fl (80-96); MEAN PLT VOLUME 8.4 fl (7.5-11.1); PLATELET COUNT 192 10^3/uL (134-434); RBC 3.87 M/mm3 (3.60-5.2); RDW 13.7 % (11.6-15.6); WHITE BLOOD COUNT 3.1 K/mm3 (4.0-10.0)
[2023-11-27 11:40] LABS: ALBUMIN 3.2 g/dl (3.4-5.0); BLOOD UREA NITROGEN 22.3 mg/dL (7-18); CALCIUM 8.7 mg/dL (8.5-10.1)
[2023-11-27 11:43] LABS: CREATININE 0.7 mg/dL (0.55-1.3)
[2023-11-27 11:45] LABS: BILIRUBIN,TOTAL 0.3 mg/dL (0.2-1); TOT PROT 7.3 g/dl (6.4-8.2)
[2023-11-27 11:56] LABS: SYPHILIS W/ RPR CONF NON-REACTIVE (NONREACTIVE)
[2023-11-27] MEDS: BACLOFEN 10 MG TABLET (FP) PO SCH ×2 (13:19→21:48)
[2023-11-27] MEDS: GABAPENTIN 100 MG CAPSULE PO SCH ×2 (15:50→21:49)
[2023-11-27] MEDS: cloNIDine HCL 0.1 MG TABLET PO SCH (21:49)
[2023-11-27] MEDS ORDERED: cloNIDine HCL 0.1 MG TABLET PO SCH (22:00)
[2023-11-28] MEDS: MELATONIN 5 MG TABLETS PO ONE (00:40)
[2023-11-28 15:33] LABS: INR 0.91 (0.83-1.09); PROTHROMBIN TIME (PATIENT) 10.5 SEC (9.7-13.0)
[2023-11-29] MEDS: NICOTINE 14 MG/24 HOURS TOPICAL PATCH TD SCH (16:40)
[2023-11-29] MEDS: GABAPENTIN 100 MG CAPSULE PO SCH (16:53)
[2023-11-29] MEDS: amLODIPine BESYLATE 2.5 MG TABLET (FP) PO SCH (16:54)
[2023-11-29] MEDS: cloNIDine HCL 0.1 MG TABLET PO PRN (18:54)
[2023-11-29] MEDS: LACTULOSE 20 GM/30 ML UDC (FOR ORAL USE ONLY) PO SCH (21:35)
[2023-12-02] MEDS: NICOTINE 21 MG/24 HOURS TOPICAL PATCH TD SCH (12:19)
[2023-12-02] MEDS: SUVOREXANT 5 MG TABLET PO PRN (21:22)
[2023-12-03] MEDS: hydrOXYzine PAMOATE 25 MG CAPSULE (FP) PO PRN (06:06)
[2023-12-05] MEDS: NICOTINE POLACRILEX 2 MG GUM BUC PRN (10:24)
[2023-12-08] MEDS: SUVOREXANT 5 MG TABLET PO PRN (21:35)
[2023-12-09] MEDS: GABAPENTIN 300 MG CAPSULE PO SCH (10:49)
[2023-12-09 11:34] LABS: POTASSIUM 4.1 mmol/L (3.5-5.1)
[2023-12-09 11:38] LABS: ALBUMIN 3.4 g/dl (3.4-5.0); CALCIUM 8.8 mg/dL (8.5-10.1)
[2023-12-09 11:39] LABS: BLOOD UREA NITROGEN 21.5 mg/dL (7-18)
[2023-12-09 11:41] LABS: CREATININE 0.6 mg/dL (0.55-1.3)
[2023-12-09 11:42] LABS: BILIRUBIN,TOTAL 0.4 mg/dL (0.2-1)
[2023-12-09 11:43] LABS: TOT PROT 7.5 g/dl (6.4-8.2)
[2023-12-10 06:47] VITALS: RESP 16; TEMP 98
[2023-12-10] MEDS: NALOXONE (NYS OPIOID OVERDOSE PROGRAM) 4 MG/0.1 ML SPRAY NS PRN (10:21)
[2023-12-10 10:57] VITALS: BP 137/78; PULSE 75
== END 2023-12-10 11:07 | disposition home or self-care (01) | DRG 895 ==
LOC: YASAS 10:40 → Y3NR 12:32 → Y5N 11-27 13:01
PROVIDERS: ADMIT Psychiatry & Neurology Pain Medicine; ATTEND Psychiatry & Neurology Pain Medicine
PROC: HZ42ZZZ Group Counseling for Substance Abuse Treatment, Cognitive-Behavioral (ICD-10-PCS; principal; 2023-11-26)
DX: F14.20 Cocaine dependence, uncomplicated (principal); F11.20 Opioid dependence, uncomplicated; F19.282 Other psychoactive substance dependence with psychoactive substance-induced sleep disorder; F19.280 Other psychoactive substance dependence with psychoactive substance-induced anxiety disorder; F10.20 Alcohol dependence, uncomplicated; F17.210 Nicotine dependence, cigarettes, uncomplicated; F19.24 Other psychoactive substance dependence with psychoactive substance-induced mood disorder; F51.05 Insomnia due to other mental disorder; F32.A Depression, unspecified; I10 Essential (primary) hypertension; Z85.118 Personal history of other malignant neoplasm of bronchus and lung
CPT/HCPCS: 36415; 80053; 80305; 80307; 81003; 82140; 82652; 83735; 85027; 85610; 86780; 86803; 87811; 93005; 93010; J0475